=== PATIENT | male | born 1960 | race Caucasian/White ===

== ENCOUNTER 2019-07-29 12:52 | Outpatient (CLI) | payer MEDICARE, SELFPAY ==
[2019-07-29 13:28] VITALS: O2SAT 85; O2SAT 93; O2SAT 94
== END 2019-07-29 12:53 | disposition home or self-care (01) ==
LOC: RT 12:57
PROVIDERS: Family Provider Nurse Practitioner Family; PCP Nurse Practitioner Family; Visit Provider Internal Medicine Critical Care Medicine
DX: Z76.89 Persons encountering health services in other specified circumstances (principal)

== ENCOUNTER 2019-08-03 11:35 | Emergency (ER) | payer MEDICARE, SELFPAY ==
[2019-08-03 11:44] VITALS: BP 131/83; PULSE 98; RESP 16; TEMP 36.6; O2SAT 93; BMI 26.4
--- NOTE | 2019-08-03 12:01 | ED_ITS ---
HPI - SOB/Dyspnea General: Chief Complaint: Shortness of Breath/Dyspnea Stated Complaint: SOB Time Seen by Provider: 08/03/19 12:00 Review of Systems General: Reports: 10 or more systems reviewed and unremarkable except in HPI and below Resp: Reports: shortness of breath, non-productive cough and wheezing PFSH ED PFSH: Statuses (acute, chronic, etc) shown below reflect problem list status as previously entered and may not be historically accurate Medical History COPD (chronic obstructive pulmonary disease) GERD (gastroesophageal reflux disease) Tobacco abuse Surgical History H/O eye surgery H/O hernia repair History of facial surgery Family History Father Cancer Mother Dementia Diabetes Social History Smoking and tobacco status: current every day smoker cigarettes Years cigarettes smoked: 40 [ Other cigarette details: Pt on Chantix - Trying to quit ] Alcohol intake: current Alcohol intake frequency: holidays/special occasions only Lives independently: Yes Household members: significant other Marital status: Legally Current occupational status: disabled History of recent travel: No Current gender identity: Male Physical Exam Const: COMMON NORMALS: no apparent distress, average body habitus, oriented x3, no limitations, alert and well nourished Resp: EFFORT & INSPECTION: Yes able to speak in complete sentences, Yes symmetric chest movement, Yes respiratory distress, Yes decreased respiratory effort, Yes uses accessory muscles and Yes prolonged expiratory phase AUSCULTATION: diminished lung sounds Extremity: GENERAL: Yes normal exam except as noted and No edema Neuro: COMMON NORMALS: oriented x3 SENSORIUM/ORIENTATION: Yes alert Skin: COMMON NORMALS: no rashes or lesions noted, no wounds, skin turgor normal, no jaundice and no petechiae GENERAL SKIN EXAM: no rashes or lesions noted and turgor normal Course Vital Signs: Vital signs: Vital Signs Temperature 97.9 F 08/03/19 11:44 Pulse Rate 88 08/03/19 13:30 Respiratory Rate 23 H 08/03/19 13:30 Blood Pressure 132/109 08/03/19 13:30 Pulse Oximetry 94 08/03/19 13:30 MDM - SOB/Dyspnea Lab Data: Labs: Lab Results 08/03/19 08/03/19 08/03/19 Range/Units 12:20 12:25 12:25 WBC 7.7 (4.0-10.0) 10^3/ uL RBC 5.03 (4.1-5.3) 10^6/u L Hgb 16.6 (11.7-16.6) g/dL Hct 50.5 (42.0-52.0) % MCV 100.4 H (80-94) fL MCH 33.0 (28.0-34.0) pg MCHC 32.9 (30.0-36.0) g/dL RDW 12.8 (12.1-15.1) % Plt Count 297 (130-400) 10^3/c mm MPV 10.2 (7.4-10.4) fL Neut % (Auto) 72.7 % Lymph % (Auto) 14.0 % [place] % (Auto) 6.9 % Eos % (Auto) 5.3 % Baso % (Auto) 0.8 % Neut # (Auto) 5.6 (1.8-7.7) 10^3/u L Lymph # (Auto) 1.1 (0.8-4.8) 10^3/u L [place] # (Auto) 0.5 (0.2-0.9) 10^3/u L Eos # (Auto) 0.4 (0.0-0.8) 10^3/u L Baso # (Auto) 0.1 (0.0-0.1) 10^3/u L Nucleated RBC % (a uto) 0 % Nucleated RBCs # 0.0 /100WBC PT 12.90 (10.5-13.3) SECO NDS INR 0.94 (0.8-1.2) Sodium (136-145) mmol/L Potassium (3.5-5.1) mmol/L Chloride (98-107) mmol/L Carbon Dioxide (22-29) mmol/L Anion Gap (5-19) BUN (8-23) mg/dL Creatinine (0.7-1.2) mg/dL GFR Calculation (90-130) mL/min Glucose (65-115) mg/dL Calcium (8.5-10.5) mg/dL Total Bilirubin (0.15-1.2) mg/dL AST (0-40) U/L ALT (0-41) U/L Alkaline Phosphata se (40-130) IU/L NT-Pro-B Natriuret Pep (0-125) pg/mL Total Protein (6.6-8.7) g/dL Albumin (3.5-5.2) g/dL Globulin (1.3-4.6) g/dL Influenza Type A A g Negative (Negative) POC Influenza B Ag Negative (Negative) 08/03/19 Range/Units 12:25 WBC (4.0-10.0) 10^3/ uL RBC (4.1-5.3) 10^6/u L Hgb (11.7-16.6) g/dL Hct (42.0-52.0) % MCV (80-94) fL MCH (28.0-34.0) pg MCHC (30.0-36.0) g/dL RDW (12.1-15.1) % Plt Count (130-400) 10^3/c mm MPV (7.4-10.4) fL Neut % (Auto) % Lymph % (Auto) % [place] % (Auto) % Eos % (Auto) % Baso % (Auto) % Neut # (Auto) (1.8-7.7) 10^3/u L Lymph # (Auto) (0.8-4.8) 10^3/u L [place] # (Auto) (0.2-0.9) 10^3/u L Eos # (Auto) (0.0-0.8) 10^3/u L Baso # (Auto) (0.0-0.1) 10^3/u L Nucleated RBC % (a uto) % Nucleated RBCs # /100WBC PT (10.5-13.3) SECO NDS INR (0.8-1.2) Sodium 143 (136-145) mmol/L Potassium 4.2 (3.5-5.1) mmol/L Chloride 105 (98-107) mmol/L Carbon Dioxide 26 (22-29) mmol/L Anion Gap 16.2 (5-19) BUN 19 (8-23) mg/dL Creatinine 1.0 (0.7-1.2) mg/dL GFR Calculation 76.2 L (90-130) mL/min Glucose 111 (65-115) mg/dL Calcium 9.5 (8.5-10.5) mg/dL Total Bilirubin 0.2 (0.15-1.2) mg/dL AST 14 (0-40) U/L ALT 19 (0-41) U/L Alkaline Phosphata se 75 (40-130) IU/L NT-Pro-B Natriuret Pep 16 (0-125) pg/mL Total Protein 7.3 (6.6-8.7) g/dL Albumin 4.5 (3.5-5.2) g/dL Globulin 2.8 (1.3-4.6) g/dL Influenza Type A A g (Negative) POC Influenza B Ag (Negative) Discharge Plan Discharge Patient Disposition: Home, Self-Care Clinical Impression: Acute exacerbation of chronic obstructive airways disease Condition: Stable Prescriptions: New prednisone 10 mg tablets,dose pack See Rx Instructions .ROUTE .COMPLEX Qty: 21 RF: 0 No Action Chantix Starting Month Box 0.5 mg (11)- 1 mg (42) tablets,dose pack 1 each PO PER PKG DIR RF: 0 Spiriva with HandiHaler 18 mcg capsule, w/inhalation device 1 cap INHALATION ONCE 60 Days Qty: 60 RF: 3 Eliquis 5 mg tablet 2.5 mg PO BID 90 Days Qty: 90 RF: 2 fluticasone propionate 50 mcg/actuation spray,suspension 1 spray INTRANASAL BID 60 Days Qty: 36.4 RF: 1 sildenafil (pulm.hypertension) 20 mg tablet 20 mg PO .COMPLEX RF: 0 epinephrine 0.3 mg/0.3 mL auto-injector 0.3 mg IM ONCE RF: 0 albuterol sulfate [ProAir HFA] 90 mcg/actuation HFA aerosol inhaler 2 puff INHALATION Q6H PRNRF: 0 Symbicort 160-4.5 mcg/actuation HFA aerosol inhaler 2 puff INHALATION BID RF: 0 omeprazole 20 mg capsule,delayed release(DR/EC) 20 mg PO ONCE RF: 0 ipratropium-albuterol 0.5 mg-3 mg(2.5 mg base)/3 mL solution for nebulization 3 ml INHALATION QID PRNRF: 0 prednisone 5 mg tablet 2.5 mg PO DAILY Qty: 60 RF: 0 Discharge Orders: Discharge Order (Routine); Ordered 08/03/19 Ordered By: Antione Solitario Referrals: Betina Webb FNP [Primary Care Provider] - Ky Howard FNP [Family Provider] - Coding Level of Care Code ED Game Programmer for Chg Fwd Exam Problem Focused
[2019-08-03 12:08] VITALS: BP 126/82; PULSE 96; RESP 18; O2SAT 95
[2019-08-03 12:35] LABS: Basophils # 0.1 10^3/uL (0.0-0.1); Basophils % 0.8 %; Eosinophils # 0.4 10^3/uL (0.0-0.8); Eosinophils % 5.3 %; Hematocrit 50.5 % (42.0-52.0); Hemoglobin 16.6 g/dL (11.7-16.6); Lymphocytes # 1.1 10^3/uL (0.8-4.8); Mean Corpuscular HGB Conc 32.9 g/dL (30.0-36.0); Mean Corpuscular Volume 100.4 fL (80-94); Mean Platelet Volume 10.2 fL (7.4-10.4); Monocytes # 0.5 10^3/uL (0.2-0.9); Monocytes % 6.9 %; Neutrophils # 5.6 10^3/uL (1.8-7.7); Neutrophils % 72.7 %; Nucleated Red Blood Cells % 0 %; Platelet Count 297 10^3/cmm (130-400); Red Blood Count 5.03 10^6/uL (4.1-5.3); Red Cell Distribution Width 12.8 % (12.1-15.1); White Blood Count 7.7 10^3/uL (4.0-10.0)
[2019-08-03] MEDS: sodium chloride 0.9% 500 ML 999 ML IV (12:36)
[2019-08-03 12:49] LABS: INR 0.94 (0.8-1.2)
[2019-08-03 13:00] LABS: Alanine Aminotransferase 19 U/L (0-41); Albumin Level 4.5 g/dL (3.5-5.2); Alkaline Phosphatase 75 IU/L (40-130); Anion Gap 16.2 (5-19); Aspartate Amino Transferase 14 U/L (0-40); Blood Urea Nitrogen 19 mg/dL (8-23); Calcium 9.5 mg/dL (8.5-10.5); Carbon Dioxide 26 mmol/L (22-29); Chloride 105 mmol/L (98-107); Globulin 2.8 g/dL (1.3-4.6); Glomerular Filtration Rate 76.2 mL/min (90-130); Glucose 111 mg/dL (65-115); NT Pro B Type Natriuretic Pept 16 pg/mL (0-125); Potassium 4.2 mmol/L (3.5-5.1); Sodium 143 mmol/L (136-145); Total Bilirubin 0.2 mg/dL (0.15-1.2); Total Protein 7.3 g/dL (6.6-8.7)
[2019-08-03 13:06] LABS: Influenza A by IFA Negative (Negative); Influenza B by IFA Negative (Negative)
--- NOTE | 2019-08-03 13:22 | XR_ITS ---
WS: [id number] Portable AP upright chest, 08/03/2019 Clinical Data: dyspnea Comparison: Portable chest, 05/07/2019. Findings: No nodules, masses or effusions are seen. The heart is normal. The pulmonary vascularity is not increased. No pneumonia or pneumothorax is seen. The aortic arch and descending aorta are tortuo us. The diaphragms are flattened. Monitor leads are on the chest wall. XR/XR chest 1V portable [id number] Impression: Atherosclerosis and hyperinflation.
[2019-08-03 13:30] VITALS: BP 132/109; PULSE 88; RESP 23; O2SAT 94
[2019-08-03 14:15] VITALS: BP 117/88; PULSE 56; RESP 16; O2SAT 95
== END 2019-08-03 14:15 | disposition home or self-care (01) ==
PROVIDERS: Emergency Provider Family Medicine; Family Provider Nurse Practitioner Family; PCP Nurse Practitioner Family
DX: J44.1 Chronic obstructive pulmonary disease with (acute) exacerbation (principal); Z79.51 Long term (current) use of inhaled steroids; F17.210 Nicotine dependence, cigarettes, uncomplicated
CPT/HCPCS: 36415; 71045; 80053; 83880; 85025; 85610; 87040; 87070; 87205; 87804; 96374; 96375; 99282; 99284; J2930; J7040

== ENCOUNTER 2019-10-21 10:38 | Emergency (ER) | payer MEDICARE, MEDICAID, SELFPAY ==
[2019-10-21 10:46] VITALS: BP 140/84; PULSE 89; RESP 15; TEMP 36.8; O2SAT 97; BMI 26.4
--- NOTE | 2019-10-21 10:50 | ED_ITS ---
HPI - SOB/Dyspnea General: Chief Complaint: Shortness of Breath/Dyspnea Stated Complaint: SOB, CP X 3-4 DAYS Time Seen by Provider: 10/21/19 10:50 Source: patient Mode of arrival: ambulatory Limitations: no limitations Review of Systems General: Reports: 10 or more systems reviewed and unremarkable except in HPI and below PFSH ED PFSH: Social History Smoking and tobacco status: current every day smoker cigarettes Years cigarettes smoked: 40 [ Other cigarette details: Pt on Chantix - Trying to quit ] Alcohol intake: current Alcohol intake frequency: holidays/special occasions only Lives independently: Yes Household members: significant other Marital status: Legally Current occupational status: disabled History of recent travel: No Current gender identity: Male Physical Exam Const: COMMON NORMALS: no apparent distress and oriented x3 GENERAL POONAM EARANCE: cooperative HENMT: COMMON NORMALS: normocephalic, TM's normal bilaterally and external nose normal HEAD & SCALP: normal to inspection and normocephalic NOSE: external nose normal TYMPANIC MEMBRANE: TM's normal bilaterally MOUTH: oral and palatal mucosa normal THROAT: posterior oropharynx normal Eye: GENERAL EYE: normal appearance of both eyes Neck/C-Spine: COMMON NORMALS: full ROM Lymph: LYMPHATIC: no lymphadenopathy noted Chest: COMMONS NORMALS: inspection of chest normal Resp: COMMON NORMALS: normal respiratory effort EFFORT & INSPECTION: Yes able to speak in complete sentences Cardio: COMMON NORMALS: regular rate and regular rhythm RATE: regular rate RHYTHM: regular rhythm GI: COMMON NORMALS: non-tender : COMMON NORMALS: Yes no CVA tenderness BLADDER/KIDNEY EXAM: Yes no CVA tenderness Back/Pelvis: COMMON NORMALS: no CVA tenderness and thoracic and lumbar spine normal to inspection Extremity: COMMON NORMALS: normal to inspection Neuro: COMMON NORMALS: oriented x3 and moves all extremities Psych: COMMON NORMALS: mental status grossly normal and cooperative Skin: COMMON NORMALS: no rashes or lesions noted GENERAL SKIN EXAM: no rashes or lesions noted Course Vital Signs: Vital signs: Vital Signs Temperature 98.3 F 10/21/19 10:46 Pulse Rate 89 10/21/19 10:46 Respiratory Rate 15 10/21/19 10:46 Blood Pressure 140/84 10/21/19 10:46 Pulse Oximetry 97 10/21/19 10:46 Discharge Plan Discharge Prescriptions: No Action Chantix Starting Month Box 0.5 mg (11)- 1 mg (42) tablets,dose pack 1 each PO PER PKG DIR RF: 0 Spiriva with HandiHaler 18 mcg capsule, w/inhalation device 1 cap INHALATION ONCE 60 Days Qty: 60 RF: 3 Eliquis 5 mg tablet 2.5 mg PO BID 90 Days Qty: 90 RF: 2 fluticasone propionate 50 mcg/actuation spray,suspension 1 spray INTRANASAL BID 60 Days Qty: 36.4 RF: 1 sildenafil (pulm.hypertension) 20 mg tablet 20 mg PO .COMPLEX RF: 0 epinephrine 0.3 mg/0.3 mL auto-injector 0.3 mg IM ONCE RF: 0 albuterol sulfate [ProAir HFA] 90 mcg/actuation HFA aerosol inhaler 2 puff INHALATION Q6H PRNRF: 0 Symbicort 160-4.5 mcg/actuation HFA aerosol inhaler 2 puff INHALATION BID RF: 0 omeprazole 20 mg capsule,delayed release(DR/EC) 20 mg PO ONCE RF: 0 ipratropium-albuterol 0.5 mg-3 mg(2.5 mg base)/3 mL solution for nebulization 3 ml INHALATION QID PRNRF: 0 prednisone 5 mg tablet 5 mg PO DAILY Qty: 30 RF: 12 Coding Level of Care Code ED Online Merchant for Chg oHng
--- NOTE | 2019-10-21 10:54 | XR_ITS ---
WS: [id number] PORTABLE CHEST HISTORY: sob COMPARISON: 08/03/2019 Hyperexpanded lungs with chronic interstitial thickening. No pneumonia. Normal vasculature. No pleura l effusion or pneumothorax. Cardiac size: Normal. Mediastinum/Aorta: Mild atherosclerosis aorta. No osseous abnormality seen. XR/XR chest 1V portable [id number] IMPRESSION: Chronic emphysema with no acute cardiopulmonary disease.
--- NOTE | 2019-10-21 10:54 | CT_ITS ---
WS: [id number] CT CHEST ANGIOGRAPHY WITH REFORMATS HISTORY: sob TECHNIQUE: Contiguous axial images are obtained through the chest during arterial injection of intrav enous contrast. Images are reconstructed to evaluate the pulmonary arteries. MIP imaging also reviewe d. All CT scans at [facility] use at least one of these dose optimization techniques: aut omated exposure control; mA and/or kV adjustment per patient size (includes targeted exams where dose is matched to clinical indication); or iterative reconstruction. CONTRAST: Omnipaque 350; 95 mL IV. DLP: 647.41 mGy.cm COMPARISON: 09/08/2018 Excellent opacification of the pulmonary arteries. No central filling defects. The main pulmonary art eries are normal. Nonocclusive filling defects in the proximal RIGHT upper lobe pulmonary artery. The re are very tiny filling defects in the subsegmental branches of the lower lobes bilaterally. Segment al branch nonocclusive RIGHT middle lobe emboli. Normal size thoracic aorta. Pulmonary artery size is normal. Cardiac chamber size is normal. No RIGHT heart strain. There is mild thickening of the LEFT ventricle myocardium. No pericardial or pleural e ffusions. No pneumonia or pulmonary nodules. Numerous mediastinal and hilar lymph nodes. Similar appearance as compared to 09/08/2018. Bilateral hi lar lymph nodes measure up to 11 mm in diameter. Small hiatal hernia. Mild hepatic steatosis. No adrenal mass. Mild increase in thoracic kyphosis. No osteoblastic or osteolytic bone disease. Healed rib fracture i n the mid lateral RIGHT thorax. Notified Melly Rogel MD at 10/21/2019 12:[address]/CT angio chest PE protcl [id number] IMPRESSION: 1. Segmental and subsegmental nonocclusive pulmonary emboli. 2. No pneumonia. 3. Mild LEFT ventricular hypertrophy. 4. Mediastinal and hilar lymphadenopathy is indeterminate and stable since 08/21.
--- NOTE | 2019-10-21 10:54 | ECG_ITS ---
Measurements Intervals [place] Rate: 78 P: 63 GA: 156 QRS: 50 QRSD: 95 T: 44 QT: 353 QTc: 404 SINUS RHYTHM Compared to ECG 05/07/2019 14:32:29 Sinus tachycardia no longer present Electronically Signed On 10-22-2019 15:41:59 CDT by Moraima Underwood M.D. [email or web address]
[2019-10-21 11:07] VITALS: BP 138/99; PULSE 81; RESP 15; O2SAT 95
[2019-10-21 11:11] LABS: Basophils # 0.1 10^3/uL (0.0-0.1); Basophils % 0.8 %; Eosinophils # 0.6 10^3/uL (0.0-0.8); Eosinophils % 6.9 %; Hematocrit 52.8 % (42.0-52.0); Hemoglobin 17.4 g/dL (11.7-16.6); Lymphocytes # 1.5 10^3/uL (0.8-4.8); Lymphocytes % 17.6 %; Mean Corpuscular Hemoglobin 34.3 pg (28.0-34.0); Mean Corpuscular Volume 104.1 fL (80-94); Mean Platelet Volume 10.2 fL (7.4-10.4); Monocytes # 0.6 10^3/uL (0.2-0.9); Monocytes % 7.1 %; Neutrophils # 5.6 10^3/uL (1.8-7.7); Neutrophils % 67.2 %; Nucleated Red Blood Cells % 0 %; Platelet Count 275 10^3/cmm (130-400); Red Blood Count 5.07 10^6/uL (4.1-5.3); Red Cell Distribution Width 12.4 % (12.1-15.1); White Blood Count 8.4 10^3/uL (4.0-10.0)
--- NOTE | 2019-10-21 11:28 | ED_ITS ---
HPI - SOB/Dyspnea General: Chief Complaint: Shortness of Breath/Dyspnea Stated Complaint: SOB, CP X 3-4 DAYS Time Seen by Provider: 10/21/19 10:50 Source: patient Mode of arrival: ambulatory Limitations: no limitations History of Present Illness: HPI Narrative: 59-year-old male with a history of COPD and pulmonary was him states that he has had increasing shortness of breath over the last 3 to 4 days along with a left-sided sharp chest pain. He states his dyspnea usually gets worse this time a year with pollen. He denies any fever or coughs. He states that the pain is constant and sharp in nature and is been there for days. Associated symptoms: Reports chest pain; Deny abdominal pain, fever(s), nausea or vomiting Review of Systems Const: Denies: fever, chills, body aches or change in appetite Eyes: Denies: blurry vision or eye discomfort ENMT: Denies: throat pain or dental pain Card: Reports: chest pain Resp: Reports: shortness of breath and wheezing GI: Denies: abdominal pain, nausea, vomiting or diarrhea : Denies: painful urination Musc: Denies: neck pain or back pain Skin/Breast: Denies: rash Neuro: Denies: headache Psych: Denies: depression [place]/Lymph: Denies: easy bruising All/Imm: Denies: hives PFSH ED PFSH: Medical History COPD (chronic obstructive pulmonary disease) GERD (gastroesophageal reflux disease) Tobacco abuse Surgical History H/O eye surgery H/O hernia repair History of facial surgery Family History Father Cancer Mother Dementia Diabetes Social History Smoking and tobacco status: current every day smoker cigarettes Years cigarettes smoked: 40 [ Other cigarette details: Pt on Chantix - Trying to quit ] Alcohol intake: current Alcohol intake frequency: holidays/special occasions only Lives independently: Yes Household members: significant other Marital status: Legally Current occupational status: disabled History of recent travel: No Current gender identity: Male Physical Exam Const: COMMON NORMALS: no apparent distress, oriented x3 and healthy appearing HENMT: COMMON NORMALS: normocephalic and head/scalp atraumatic HEAD & SCAL P: normocephalic and atraumatic Eye: COMMON NORMALS: PERRL and EOMs intact bilaterally PUPIL: Yes PERRL Neck/C-Spine: COMMON NORMALS: full ROM and supple Chest: COMMONS NORMALS: inspection of chest normal and palpation of chest normal Resp: COMMON NORMALS: normal respiratory effort, no retractions, no use of accessory muscles and clear to auscultation bilaterally AUSCULTATION: clear to auscultation bilaterally and wheezes Cardio: COMMON NORMALS: regular rate, regular rhythm and no murmurs RATE: regular rate RHYTHM: regular rhythm GI: COMMON NORMALS: normal to inspection, nondistended, normoactive bowel sounds, soft to palpation, non-tender and no masses PALPATION: Yes soft Extremity: COMMON NORMALS: normal to inspection and full ROM Neuro: COMMON NORMALS: oriented x3, moves all extremities and no focal motor deficits Psych: COMMON NORMALS: mental status grossly normal, thought process normal and cooperative THOUGHT PROCESS: normal thought process Skin: COMMON NORMALS: no rashes or lesions noted and no wounds GENERAL SKIN EXAM: no rashes or lesions noted Course Vital Signs: Vital signs: Vital Signs Temperature 98.3 F 10/21/19 10:46 Pulse Rate 86 10/21/19 12:57 Respiratory Rate 20 H 10/21/19 12:57 Blood Pressure 142/95 10/21/19 12:57 Pulse Oximetry 96 10/21/19 12:57 MDM - SOB/Dyspnea MDM Narrative: Medical decision making narrative: Patient presents here shortness of breath chest pain that is likely a bronchitis. He feels much improved here after breathing treatment. CT did show very small pulmonary emboli likely causing no symptoms. 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 His troponin here is negative. EKG is normal as well. Will place on steroids and he is stable for discharge and return if worsening. Lab Data: Labs: Lab Results 10/21/19 10/21/19 10/21/19 Range/Units 11:02 11:02 11:02 WBC 8.4 (4.0-10.0) 10^3/ uL RBC 5.07 (4.1-5.3) 10^6/u L Hgb 17.4 H (11.7-16.6) g/dL Hct 52.8 H (42.0-52.0) % MCV 104.1 H (80-94) fL MCH 34.3 H (28.0-34.0) pg MCHC 33.0 (30.0-36.0) g/dL RDW 12.4 (12.1-15.1) % Plt Count 275 (130-400) 10^3/c mm MPV 10.2 (7.4-10.4) fL Neut % (Auto) 67.2 % Lymph % (Auto) 17.6 % [place] % (Auto) 7.1 % Eos % (Auto) 6.9 % Baso % (Auto) 0.8 % Neut # (Auto) 5.6 (1.8-7.7) 10^3/u L Lymph # (Auto) 1.5 (0.8-4.8) 10^3/u L [place] # (Auto) 0.6 (0.2-0.9) 10^3/u L Eos # (Auto) 0.6 (0.0-0.8) 10^3/u L Baso # (Auto) 0.1 (0.0-0.1) 10^3/u L Nucleated RBC % (a uto) 0 % Nucleated RBCs # 0.0 /100WBC Sodium 140 (136-145) mmol/L Potassium 4.2 (3.5-5.1) mmol/L Chloride 100 (98-107) mmol/L Carbon Dioxide 26 (22-29) mmol/L Anion Gap 18.2 (5-19) BUN 19 (8-23) mg/dL Creatinine 1.0 (0.7-1.2) mg/dL GFR Calculation 76.2 L (90-130) mL/min Glucose 95 (65-115) mg/dL Calculated Osmolal ity 286 (285-295) mOsm/k g Calcium 10.1 (8.5-10.5) mg/dL Total Bilirubin 0.5 (0.15-1.2) mg/dL AST 16 (0-40) U/L ALT 25 (0-41) U/L Alkaline Phosphata se 91 (40-130) IU/L Troponin T Baselin e 12 (0-15) ng/mL NT-Pro-B Natriuret Pep 27 (0-125) pg/mL Total Protein 8.1 (6.6-8.7) g/dL Albumin 4.9 (3.5-5.2) g/dL Globulin 3.2 (1.3-4.6) g/dL Imaging Data^: CXR: Radiologist's impression: [place] [id number] XRay Report Signed Patient: Jose Juan Fernandez Unit #: [id number] : 1960 Age/Sex: 59 / M ADM Date: 10/21/19 Loc: ER Room/Bed: Attending Dr: Ordering Provider/Ordering MD: Melly Rgoel MD Date of Service: 10/21/19 Procedure(s): XR chest 1V portable [id number] Accession Number(s): [id number] Report Number: [id number] WS: [id number] PORTABLE CHEST HISTORY: sob COMPARISON: 08/03/2019 Hyperexpanded lungs with chronic interstitial thickening. No pneumonia. Normal vasculature. No pleural effusion or pneumothorax. Cardiac size: Normal. Mediastinum/Aorta: Mild atherosclerosis aorta. No osseous abnormality seen. XR/XR chest 1V portable [id number] IMPRESSION: Chronic emphysema with no acute cardiopulmonary disease. CT Chest: Attestation: I personally reviewed and interpreted this imaging study as follows: Radiologist's impression: [address] [place] [address] CT Scan Report Signed Patient: Jose Juan Fernandez Unit #: [id number] : 1960 [id number] Age/Sex: 59 / M ADM Date: 10/21/19 Loc: ER Room/Bed: Attending Dr: Ordering Provider/Ordering MD: Melly Rogel MD Date of Service: 10/21/19 Procedure(s): CT angio chest PE protcl [id number] Accession Number(s): [id number] Report Number: [id number] WS: [id number] CT CHEST ANGIOGRAPHY WITH REFORMATS HISTORY: sob TECHNIQUE: Contiguous axial images are obtained through the chest during arterial injection of intravenous contrast. Images are reconstructed to evaluate the pulmonary arteries. MIP imaging also reviewed. All CT scans at [facility] use at least one of these dose optimization techniques: automated exposure control; mA and/or kV adjustment per patient size (includes targeted exams where dose is matched to clinical indication); or iterative reconstruction. CONTRAST: Omnipaque 350; 95 mL IV. DLP: 647.41 mGy.cm COMPARISON: 09/08/2018 Excellent opacification of the pulmonary arteries. No central filling defects. The main pulmonary arteries are normal. Nonocclusive filling defects in the proximal RIGHT upper lobe pulmonary artery. There are very tiny filling defects in the subsegmental branches of the lower lobes bilaterally. Segmental branch nonocclusive RIGHT middle lobe emboli. Normal size thoracic aorta. Pulmonary artery size is normal. Cardiac chamber size is normal. No RIGHT heart strain. There is mild thickening of the LEFT ventricle myocardium. No pericardial or pleural effusions. No pneumonia or pulmonary nodules. Numerous mediastinal and hilar lymph nodes. Similar appearance as compared to 09/08/2018. Bilateral hilar lymph nodes measure up to 11 mm in diameter. Small hiatal hernia. Mild hepatic steatosis. No adrenal mass. Mild increase in thoracic kyphosis. No osteoblastic or osteolytic bone disease. Healed rib fracture in the mid lateral RIGHT thorax. Notified Melly Rogel MD at 10/21/2019 12:[address]/CT angio chest PE protcl [id number] IMPRESSION: 1. Segmental and subsegmental nonocclusive pulmonary emboli. 2. No pneumonia. 3. Mild LEFT ventricular hypertrophy. 4. Mediastinal and hilar lymphadenopathy is indeterminate and stable since 09/08/2018. EKG Data^: EKG 1: Attestation: I personally reviewed and interpreted this EKG as follows: EKG Interpretation Date: 10/21/19 EKG interpretation time: 11:35 Interpretation: nsr hr [address] or t wave abnormalities qrs 95 qtc 386 Discharge Plan Discharge Patient Disposition: Home, Self-Care Clinical Impression: Acute exacerbation of chronic obstructive airways disease Pulmonary embolism Qualifiers: Pulmonary embolism type: multiple subsegmental (without acute cor pulmonale) Qualified Code(s): I26.94 - Multiple subsegmental pulmonary emboli without acute cor pulmonale Condition: Stable Prescriptions: New azithromycin 250 mg tablet See Rx Instructions .ROUTE .COMPLEX Qty: 6 RF: 0 prednisone 50 mg tablet 50 mg PO DAILY Qty: 5 RF: 0 No Action Chantix Starting Month Box 0.5 mg (11)- 1 mg (42) tablets,dose pack 1 each PO PER PKG DIR RF: 0 Eliquis 5 mg tablet 2.5 mg PO BID 90 Days Qty: 90 RF: 2 fluticasone propionate 50 mcg/actuation spray,suspension 1 spray INTRANASAL BID 60 Days Qty: 36.4 RF: 1 sildenafil (pulm.hypertension) 20 mg tablet 20 mg PO .COMPLEX RF: 0 epinephrine 0.3 mg/0.3 mL auto-injector 0.3 mg IM PRN RF: 0 albuterol sulfate [ProAir HFA] 90 mcg/actuation HFA aerosol inhaler 2 puff INHALATION Q6H PRN (Reason: Shortness Of Breath) RF: 0 Symbicort 160-4.5 mcg/actuation HFA aerosol inhaler 2 puff INHALATION BID RF: 0 omeprazole 20 mg capsule,delayed release(DR/EC) 20 mg PO DAILY RF: 0 ipratropium-albuterol 0.5 mg-3 mg(2.5 mg base)/3 mL solution for nebulization 3 ml INHALATION QID PRN (Reason: Shortness Of Breath) RF: 0 prednisone 5 mg tablet 5 mg PO DAILY Qty: 30 RF: 12 Centrum Men 8 mg iron- 200 mcg-600 mcg Tablet 1 tab PO DAILY RF: 0 Spiriva with HandiHaler 18 mcg capsule, w/inhalation device 1 cap INHALATION DAILY RF: 0 Discharge Orders: Discharge Order (Routine); Ordered 10/21/19 Ordered By: Melly Rogel Referrals: Betina Webb FNP [Primary Care Provider] - Wiliam Howard FNP [Family Provider] - Discharge Diet: Advance as tolerated Discharge Activity: Resume usual activity Patient Instructions: Acute Bronchitis (ED) Discharge Date/Time: 10/21/19 12:57 Coding Level of Care Code ED Manufacturer'S Representative for Chg Fwd Exam Comprehensive
[2019-10-21 11:29] LABS: Troponin(5th) Baseline 12 ng/mL (0-15)
[2019-10-21 11:38] LABS: Alanine Aminotransferase 25 U/L (0-41); Albumin Level 4.9 g/dL (3.5-5.2); Alkaline Phosphatase 91 IU/L (40-130); Anion Gap 18.2 (5-19); Aspartate Amino Transferase 16 U/L (0-40); Blood Urea Nitrogen 19 mg/dL (8-23); Calcium 10.1 mg/dL (8.5-10.5); Carbon Dioxide 26 mmol/L (22-29); Chloride 100 mmol/L (98-107); Globulin 3.2 g/dL (1.3-4.6); Glomerular Filtration Rate 76.2 mL/min (90-130); Glucose 95 mg/dL (65-115); NT Pro B Type Natriuretic Pept 27 pg/mL (0-125); Osmolality Calculated 286 mOsm/kg (285-295); Potassium 4.2 mmol/L (3.5-5.1); Sodium 140 mmol/L (136-145); Total Bilirubin 0.5 mg/dL (0.15-1.2); Total Protein 8.1 g/dL (6.6-8.7)
[2019-10-21] MEDS: iohexol 350 mg/mL 100 mL Btl IV (12:01)
[2019-10-21 12:18] VITALS: BP 137/82; PULSE 77; RESP 19; O2SAT 93
[2019-10-21] MEDS: ipratropium-albuterol 3 mL Neb INHALATION (12:31)
[2019-10-21 12:32] VITALS: PULSE 76; RESP 18; O2SAT 95
[2019-10-21 12:37] VITALS: PULSE 76
[2019-10-21 12:57] VITALS: BP 142/95; PULSE 86; RESP 20; O2SAT 96
[2019-10-21 13:20] LABS: INR 0.88 (0.8-1.2)
== END 2019-10-21 12:57 | disposition home or self-care (01) ==
PROVIDERS: Nurse Practitioner Family; Emergency Provider Emergency Medicine; Family Provider Nurse Practitioner Family; PCP Nurse Practitioner Family
DX: J44.1 Chronic obstructive pulmonary disease with (acute) exacerbation (principal); I26.94 Multiple subsegmental thrombotic pulmonary emboli without acute cor pulmonale; Z79.01 Long term (current) use of anticoagulants; K21.9 Gastro-esophageal reflux disease without esophagitis; F17.210 Nicotine dependence, cigarettes, uncomplicated; I70.0 Atherosclerosis of aorta
CPT/HCPCS: 12345; 71045; 71275; 80053; 83880; 84484; 85025; 85610; 93005; 94640; 96374; 99283; 99284; J2930; J7611; Q9967

== ENCOUNTER → 2020-04-28 09:55 | Outpatient (BNVA) | payer MEDICARE, MEDICAID, SELFPAY | PROVIDERS: Family Provider Nurse Practitioner Family; PCP Nurse Practitioner Family; Visit Provider Nurse Practitioner Family | DX: L03.119 Cellulitis of unspecified part of limb (principal); R03.0 Elevated blood-pressure reading, without diagnosis of hypertension; R53.83 Other fatigue; D58.2 Other hemoglobinopathies | CPT/HCPCS: 80053; 82607; 85007; 85027 ==

== ENCOUNTER 2020-12-18 06:21 | Emergency (ER) | payer MEDICARE, MEDICAID, SELFPAY ==
[2020-12-18 06:29] VITALS: BP 134/86; PULSE 95; RESP 15; TEMP 36.8; O2SAT 94; BMI 23.7
[2020-12-18 06:33] VITALS: BP 137/83; PULSE 93; RESP 16; O2SAT 93
--- NOTE | 2020-12-18 06:45 | XRR_ITS ---
PROCEDURE INFORMATION: Exam: XR Chest Exam date and time: 12/18/2020 6:45 AM Age: 60 years old Clinical indication: Cough and dyspnea; Patient HX: SOB, coughing, sore throat since yesterday; Additional info: Dyspnea/cough TECHNIQUE: Imaging protocol: XR of the chest. Views: 1 view. COMPARISON: CR XR chest 1V portable [id number] 10/21/2019 10:55 AM FINDINGS: Lungs: Hyperinflation of the lungs with changes of COPD. No focal consolidation. Pleural spaces: Unremarkable. No pleural effusion. No pneumothorax. Heart/Mediastinum: No cardiomegaly. Bones/joints: No acute fracture. XR/XR chest 1V portable [id number] IMPRESSION: No acute findings. COPD.
--- NOTE | 2020-12-18 06:45 | ECG_ITS ---
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 Measurements Intervals [place] Rate: 77 P: 66 WV: 150 QRS: 59 QRSD: 88 T: 64 QT: 351 QTc: 397 Interpretive Statements SINUS RHYTHM SEPTAL MYOCARDIAL INFARCTION [40+ ms Q WAVE IN V1/V2], OF INDETERMINATE AGE Compared to ECG 10/21/2019 10:57:38 Myocardial infarct finding now present Electronically Signed On 12-18-2020 21:16:21 CDT by Serafin Roach M.D. [id number]
--- NOTE | 2020-12-18 07:14 | W.ED.SOB ---
HPI - SOB/Dyspnea General: Chief Complaint: Shortness of Breath/Dyspnea Stated Complaint: DIFF. BREATHING Time Seen by Provider: 12/18/20 06:22 History of Present Illness: HPI Narrative: 60-year-old male presents emergency room with complaint of shortness of breath muscle fatigue myalgias and weakness. He has severe COPD but over the last few days he has noticed a marked change in his symptoms and worsening. He has not had any diarrhea or anosmia. Denies chest pain or productive cough. He is still responsive to albuterol but less so than he has been in the past. He had an albuterol treatment just prior to arrival here. MD elicited complaint: shortness of breath and cough Pertinent past history: COPD Onset (ago): day(s) Timing: constant Severity: moderate Exacerbating factors: exertion and coughing Relieving factors: rest and bronchodilators Known history of: COPD Associated symptoms: Reports chest congestion, cough, myalgias and nausea; Deny abdominal pain, chest pain, diaphoresis, dizziness, extremity pain, fever(s), hemoptysis, lightheadedness, orthopnea, palpitations, paresthesias, polydipsia, sense of impending doom, syncope or vomiting Treatment prior to arrival: oxygen and bronchodilator Review of Systems Const: Denies: fever(s) or diaphoresis ENMT: Denies: throat pain, ear or mastoid pain, nasal discharge or nasal congestion Card: Denies: chest pain, palpitations, lightheadedness, syncope or orthopnea Resp: Reports: chest congestion; Denies: hemoptysis GI: Reports: nausea; Denies: abdominal pain or vomiting : Denies: flank pain, dysuria, urinary frequency or urinary urgency Musc: Denies: extremity pain Skin/Breast: Denies: rash or pruritus Neuro: Denies: dizziness Endo: Denies: polydipsia PFSH ED PFSH: Medical History COPD (chronic obstructive pulmonary disease) GERD (gastroesophageal reflux disease) Tobacco abuse Surgical History H/O eye surgery H/O hernia repair History of facial surgery Family History Father Cancer Mother Dementia Diabetes Social History Smoking and tobacco status: current every day smoker cigarettes Years cigarettes smoked: 41 [ Other cigarette details: Hx of 1PPD x 42 Years ] Quit status (tobacco): considering quitting Second hand smoke exposure: Yes Smoking risk assessment/counseling performed?: Yes Alcohol intake: current Alcohol intake frequency: holidays/special occasions only Counseling given: No Counseling given: No Lives independently: Yes Household members: significant other Marital status: Legally Current occupational status: disabled History of recent travel: No Current gender identity: Male Physical Exam Const: COMMON NORMALS: no acute distress GENERAL APPEARANCE: cooperative and comfortable ORIENTATION/CONSCIOUSNESS: Yes awake, Yes oriented to person, Yes oriented to place and Yes oriented to time HENMT: COMMON NORMALS: normocephalic, atraumatic, hearing grossly normal bilaterally and external ears normal HEAD & SCALP: normocephalic and atraumatic EXTERNAL EAR: Yes external ears normal Neck/C-Spine: COMMON NORMALS: no JVD Resp: COMMON NORMALS: normal respiratory effort, No retractions and No use of accessory muscles AUSCULTATION: wheezes Cardio: COMMON NORMALS: no JVD, regular rate, regular rhythm and No murmurs present (Cardio) RATE: regular rate RHYTHM: regular rhythm GI: COMMON NORMALS: Soft to palpation and No hepatosplenomegaly present AUSCULTATION: Yes normoactive bowel sounds PALPATION: Yes Soft to palpation, No Tenderness to palpation present (GI), No Guarding due to palpation present (GI) and Yes No hepatosplenomegaly present Extremity: COMMON NORMALS: normal to inspection, capillary refill normal, no clubbing, cyanosis or edema, no calf tenderness and no pedal edema Neuro: SENSORIUM/ORIENTATION: Yes oriented to person, Yes oriented to place and Yes oriented to time Skin: COMMON NORMALS: no rashes or lesions noted GENERAL SKIN EXAM: no rashes or lesions noted Course Vital Signs: Vital signs: Vital Signs Temperature 98.3 F 12/18/20 06:29 Pulse Rate 93 12/18/20 06:33 Respiratory Rate 16 12/18/20 06:33 Blood Pressure 137/83 12/18/20 06:33 Pulse Oximetry 93 12/18/20 06:33 MDM - SOB/Dyspnea MDM Narrative: Medical decision making narrative: Rapid Covid negative PCR is pending. Recommend self quarantine until results are back. We will start him on steroids hold the prednisone has been taking Solu-Medrol today and then dexamethasone daily for 7 days then resume his prednisone. We will also add doxycycline. Recheck if not improving or worsens Lab Data: Labs: Lab Results 12/18/20 12/18/20 12/18/20 Range/Units 07:00 08:09 08:09 WBC 9.1 (4.0-10.0) 10^3/ uL RBC 4.92 (4.1-5.3) 10^6/u L Hgb 16.4 (11.7-16.6) g/dL Hct 49.7 (42.0-52.0) % MCV 101.0 H (80-94) fL MCH 33.3 (28.0-34.0) pg MCHC 33.0 (30.0-36.0) g/dL RDW 12.6 (12.1-15.1) % Plt Count 243 (130-400) 10^3/c mm MPV 10.1 (7.4-10.4) fL Neut % (Auto) 90.8 % Lymph % (Auto) 5.0 % [place] % (Auto) 3.0 % Eos % (Auto) 0.2 % Baso % (Auto) 0.4 % Neut # (Auto) 8.24 H (1.8-7.7) 10^3/u L Lymph # (Auto) 0.5 L (0.8-4.8) 10^3/u L [place] # (Auto) 0.3 (0.2-0.9) 10^3/u L Eos # (Auto) 0.0 (0.0-0.8) 10^3/u L Baso # (Auto) 0.0 (0.0-0.1) 10^3/u L Nucleated RBC % (a uto) 0 % Nucleated RBCs # 0.0 /100WBC Specimen Type Arterial Sample Site Brachial, right ABG pH 7.43 (7.35-7.45) ABG pCO2 37.0 (35-45) mmHg ABG pO2 66.3 L (80.0-100.0) mmH g ABG HCO3 24.6 (22-26) mmol/L ABG O2 Saturation 94.6 ABG Base Excess 0.6 (-2.0-2.0) mmol/ L Jose Test N/a A-a O2 Gradient 4.9 L (5-10) mmHg Hematocrit 52.0 (42-52) % Hgb O2 Saturation 92.7 L (95-100) % Carboxyhemoglobin 1.3 (0.4-20.1) %THgb Methemoglobin 0.8 (0.4-1.5) % Total Hemoglobin 17.0 (14-18) g/dL Sodium 139.0 136 (131-143) mmol/L Potassium 4.0 4.3 (3.5-5.0) mmol/L Glucose 110.0 111 (70-115) mg/dL Ionized Calcium 1.2 (1.1-1.4) mmol/L O2 Delivery Device Room air Occupational Health Nurse ID Gd Chloride 102 (98-107) mmol/L Carbon Dioxide 25 (22-29) mmol/L Anion Gap 13.3 (5-19) BUN 11 (8-23) mg/dL Creatinine 0.9 (0.7-1.2) mg/dL GFR Calculation 85.8 L (90-130) mL/min Calculated Osmolal ity 282 L (285-295) mOsm/k g Calcium 8.7 (8.5-10.5) mg/dL Total Bilirubin 0.6 (0.15-1.2) mg/dL AST 16 (0-40) U/L ALT 18 (0-41) U/L Alkaline Phosphata se 80 (40-130) IU/L Total Protein 6.8 (6.6-8.7) g/dL Albumin 4.2 (3.5-5.2) g/dL Globulin 2.6 (1.3-4.6) g/dL SARS-CoV-2 Ag (Rap id) (Negative) 12/18/20 Range/Units 08:09 WBC (4.0-10.0) 10^3/ uL RBC (4.1-5.3) 10^6/u L Hgb (11.7-16.6) g/dL Hct (42.0-52.0) % MCV (80-94) fL MCH (28.0-34.0) pg MCHC (30.0-36.0) g/dL RDW (12.1-15.1) % Plt Count (130-400) 10^3/c mm MPV (7.4-10.4) fL Neut % (Auto) % Lymph % (Auto) % [place] % (Auto) % Eos % (Auto) % Baso % (Auto) % Neut # (Auto) (1.8-7.7) 10^3/u L Lymph # (Auto) (0.8-4.8) 10^3/u L [place] # (Auto) (0.2-0.9) 10^3/u L Eos # (Auto) (0.0-0.8) 10^3/u L Baso # (Auto) (0.0-0.1) 10^3/u L Nucleated RBC % (a uto) % Nucleated RBCs # /100WBC Specimen Type Sample Site ABG pH (7.35-7.45) ABG pCO2 (35-45) mmHg ABG pO2 (80.0-100.0) mmH g ABG HCO3 (22-26) mmol/L ABG O2 Saturation ABG Base Excess (-2.0-2.0) mmol/ L Jose Test A-a O2 Gradient (5-10) mmHg Hematocrit (42-52) % Hgb O2 Saturation (95-100) % Carboxyhemoglobin (0.4-20.1) %THgb Methemoglobin (0.4-1.5) % Total Hemoglobin (14-18) g/dL Sodium (131-143) mmol/L Potassium (3.5-5.0) mmol/L Glucose (70-115) mg/dL Ionized Calcium (1.1-1.4) mmol/L O2 Delivery Device Occupational Health Nurse ID Chloride (98-107) mmol/L Carbon Dioxide (22-29) mmol/L Anion Gap (5-19) BUN (8-23) mg/dL Creatinine (0.7-1.2) mg/dL GFR Calculation (90-130) mL/min Calculated Osmolal ity (285-295) mOsm/k g Calcium (8.5-10.5) mg/dL Total Bilirubin (0.15-1.2) mg/dL AST (0-40) U/L ALT (0-41) U/L Alkaline Phosphata se (40-130) IU/L Total Protein (6.6-8.7) g/dL Albumin (3.5-5.2) g/dL Globulin (1.3-4.6) g/dL SARS-CoV-2 Ag (Rap id) Negative (Negative) Discharge Plan Discharge Patient Disposition: Home Clinical Impression: Acute exacerbation of chronic obstructive airways disease Condition: Stable Prescriptions: New doxycycline hyclate 100 mg capsule 100 mg PO BID 10 Days Qty: 20 RF: 0 dexamethasone 6 mg tablet 6 mg PO DAILY Qty: 7 RF: 0 Held prednisone 5 mg tablet See Rx Instructions .ROUTE .COMPLEX Qty: 30 RF: 11 Hold Instructions: Resume on 12/25/20. No Action epinephrine 0.3 mg/0.3 mL auto-injector 0.3 mg IM PRN Qty: 2 RF: 0 sildenafil 25 mg tablet 25 mg PO DAILY PRNRF: 0 ipratropium-albuterol 0.5 mg-3 mg(2.5 mg base)/3 mL solution for nebulization See Rx Instructions .ROUTE .COMPLEX Qty: 6 RF: 1 budesonide-formoterol [Symbicort] 160-4.5 mcg/actuation HFA aerosol inhaler See Rx Instructions .ROUTE .COMPLEX Qty: 10.2 RF: 10 albuterol sulfate 90 mcg/actuation HFA aerosol inhaler See Rx Instructions .ROUTE .COMPLEX Qty: 17 RF: 1 fluticasone propionate 50 mcg/actuation spray,suspension See Rx Instructions .ROUTE .COMPLEX Qty: 36 RF: 3 omeprazole 20 mg capsule,delayed release(DR/EC) See Rx Instructions .ROUTE .COMPLEX Qty: 30 RF: 0 Spiriva with HandiHaler 18 mcg capsule, w/inhalation device See Rx Instructions .ROUTE .COMPLEX Qty: 30 RF: 2 Eliquis 2.5 mg tablet See Rx Instructions .ROUTE .COMPLEX Qty: 180 RF: 0 Centrum Men 8 mg iron- 200 mcg-600 mcg Tablet 1 tab PO DAILY RF: 0 Discharge Orders: Discharge ED (Routine); Ordered 12/18/20 Ordered By: Huseyin Mcdaniels Referrals: Betnia Webb FNP [Primary Care Provider] - Discharge Diet: Usual diet Discharge Activity: Limit activity as instructed Patient Instructions: Opioid Safety Activity Restrictions/Additional Instructions: Maintain self quarantine till results are back if you have worsening symptoms return to the emergency room. 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
[2020-12-18 07:19] LABS: ABG PH Result 7.43 (7.35-7.45); Alveolar-Arterial Oxygen Gradi 4.9 mmHg (5-10); Base Excess ABG 0.6 mmol/L (-2.0-2.0); Blood Gas Operator Identificat GD; Blood Gas Sample Site Brachial, right; Blood Gas Sample Type Arterial; Carboxyhemoglobin 1.3 %THgb (0.4-20.1); HCO3 ABG 24.6 mmol/L (22-26); HGB O2 Sat 92.7 % (95-100); Ionized Calcium Level - ABG 1.2 mmol/L (1.1-1.4); Methemoglobin 0.8 % (0.4-1.5); Oxygen Device ROOM AIR; Oxygen Saturation ABG 94.6; PO2 ABG 66.3 mmHg (80.0-100.0)
[2020-12-18] MEDS: ondansetron 2 mg/ML SDV 2 mL 4 MG IVP (08:00)
[2020-12-18 08:23] LABS: Basophils % 0.4 %; Eosinophils % 0.2 %; Hematocrit 49.7 % (42.0-52.0); Hemoglobin 16.4 g/dL (11.7-16.6); Lymphocytes # 0.5 10^3/uL (0.8-4.8); Mean Corpuscular Hemoglobin 33.3 pg (28.0-34.0); Mean Platelet Volume 10.1 fL (7.4-10.4); Monocytes # 0.3 10^3/uL (0.2-0.9); Neutrophils # 8.24 10^3/uL (1.8-7.7); Neutrophils % 90.8 %; Nucleated Red Blood Cells % 0 %; Platelet Count 243 10^3/cmm (130-400); Red Blood Count 4.92 10^6/uL (4.1-5.3); Red Cell Distribution Width 12.6 % (12.1-15.1); White Blood Count 9.1 10^3/uL (4.0-10.0)
[2020-12-18 08:42] LABS: Alanine Aminotransferase 18 U/L (0-41); Albumin Level 4.2 g/dL (3.5-5.2); Alkaline Phosphatase 80 IU/L (40-130); Anion Gap 13.3 (5-19); Aspartate Amino Transferase 16 U/L (0-40); Blood Urea Nitrogen 11 mg/dL (8-23); Calcium 8.7 mg/dL (8.5-10.5); Carbon Dioxide 25 mmol/L (22-29); Chloride 102 mmol/L (98-107); Globulin 2.6 g/dL (1.3-4.6); Glomerular Filtration Rate 85.8 mL/min (90-130); Glucose 111 mg/dL (65-115); Osmolality Calculated 282 mOsm/kg (285-295); Potassium 4.3 mmol/L (3.5-5.1); Sodium 136 mmol/L (136-145); Total Bilirubin 0.6 mg/dL (0.15-1.2); Total Protein 6.8 g/dL (6.6-8.7)
[2020-12-18 09:11] LABS: SARS Covid-2 Antigen Negative (Negative)
[2020-12-18 09:46] VITALS: BP 136/85; PULSE 77; RESP 20; O2SAT 93
--- NOTE | 2020-12-18 09:53 | PC.NURSE ---
patient waiting for o2 eval
[2020-12-18 10:38] VITALS: O2SAT 94
[2020-12-18 11:04] VITALS: BP 126/81; PULSE 93; RESP 21; O2SAT 92
[2020-12-20 06:30] LABS: Coronavirus Test Green County Not Detected
--- NOTE | 2020-12-20 09:40 | PC.NURSE ---
notified pt of negative covid results
== END 2020-12-18 11:07 | disposition home or self-care (01) ==
PROVIDERS: Emergency Provider Family Medicine; PCP Nurse Practitioner Family
DX: J44.1 Chronic obstructive pulmonary disease with (acute) exacerbation (principal); Z79.01 Long term (current) use of anticoagulants; F17.210 Nicotine dependence, cigarettes, uncomplicated; Z20.822 Contact with and (suspected) exposure to COVID-19
CPT/HCPCS: 36600; 71045; 80051; 80053; 82330; 82805; 85025; 87426; 87635; 93005; 96374; 96375; 99284; J2405; J2930

== ENCOUNTER → 2021-09-10 11:23 | Outpatient (BNVA) | payer MEDICARE, MEDICAID, SELFPAY | PROVIDERS: PCP Nurse Practitioner Family; Visit Provider Internal Medicine Critical Care Medicine | DX: J44.9 Chronic obstructive pulmonary disease, unspecified (principal); F17.210 Nicotine dependence, cigarettes, uncomplicated; J30.9 Allergic rhinitis, unspecified; I26.94 Multiple subsegmental thrombotic pulmonary emboli without acute cor pulmonale; K21.9 Gastro-esophageal reflux disease without esophagitis | CPT/HCPCS: 99214 ==

== ENCOUNTER 2021-11-01 14:00 | Outpatient (CLI) | payer MEDICARE, MEDICAID, SELFPAY ==
--- NOTE | 2021-11-01 14:08 | CT_ITS ---
WS: [id number] LDCT LUNG CANCER SCREENING HISTORY: Lung Cancer Screening TECHNIQUE: Axial imaging performed from the apices to 1 cm below the costophrenic angles. Coronal and sagittal reformats are submitted with axial MIP series. All CT scans at [facility] use at least one of these dose optimization techniques: automated exposure control; mA and/or kV adjustment per patient size (includes targeted exams where dose is matched to clinical indication); or iterativ e reconstruction. DLP: 89.77 mGy.cm DIvol: Mean CTDIvol: 1.60 (mGy) COMPARISON: 10/21/2019 Diagnostic quality: Motion artifact at the lung bases. Lung Nodules: Slightly nondilated 4 mm nodule in the periphery RIGHT upper lobe, image 99 of series 5 . No additional nodules. No endobronchial lesions. Lungs: Chronic emphysema. Heart: Normal size. No pericardial effusion. Other findings: Minimal atherosclerosis aorta. Normal size pulmonary artery. No adenopathy. No adrena l mass. Very small hiatal hernia. CT/CT lung screening [id number] IMPRESSION: LUNG-RADS: 3-Probably Benign FOLLOW UP: 6 Month LDCT OTHER FINDINGS (S MODIFIER): None. Six-month low-dose CT follow-up, 4 mm nodule RIGHT upper lobe.
== END 2021-11-01 14:01 | disposition home or self-care (01) ==
LOC: RAD 14:03
PROVIDERS: PCP Nurse Practitioner Family; Visit Provider Internal Medicine Critical Care Medicine
DX: Z12.31 Encounter for screening mammogram for malignant neoplasm of breast (principal); F17.210 Nicotine dependence, cigarettes, uncomplicated; J43.9 Emphysema, unspecified
CPT/HCPCS: 71271

== ENCOUNTER 2022-03-31 09:46 | Emergency (ER) | payer MEDICARE, MEDICAID, SELFPAY ==
[2022-03-31] VITALS (7 sets, daily range): BP systolic 117–158; BP diastolic 73–108; PULSE 80–96; RESP 15–18; TEMP 36.4; O2SAT 91–96; BMI 26.9
--- NOTE | 2022-03-31 09:48 | ECG_ITS ---
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 Measurements Intervals [place] Rate: 86 P: -74 PA: 106 QRS: 40 QRSD: 89 T: 44 QT: 359 QTc: 430 Interpretive Statements Ectopic atrial rhythm NONSPECIFIC T-WAVE ABNORMALITY ABNORMAL RHYTHM ECG Compared to ECG 12/18/2020 07:51:05 Junctional rhythm now present T-wave abnormality now present Sinus rhythm no longer present Myocardial infarct finding no longer present Electronically Signed On 03-31-2022 18:20:50 CDT by Serafin Roach M.D. [id number]
--- NOTE | 2022-03-31 10:05 | XRR_ITS ---
PROCEDURE INFORMATION: Exam: XR Chest Exam date and time: 03/31/2022 10:25 AM Age: 61 years old Clinical indication: Cough TECHNIQUE: Imaging protocol: Radiologic exam of the chest. Views: 2 views. COMPARISON: CR XR chest 1V portable [id number] 12/18/2020 6:49 AM FINDINGS: Lungs: The lung parenchyma is clear. Pleural spaces: No pneumothorax. No pleural effusion. Heart/Mediastinum: The cardiomediastinal silhouette is within normal limits. Bones/joints: Multilevel degenerative changes in the spine. XR/XR chest 2V* [id number] IMPRESSION: No acute cardiopulmonary abnormality identified.
--- NOTE | 2022-03-31 10:20 | ED_ITS ---
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 Patient tells me that he was in contact with another person who was diagnosed with norovirus. Patient denies any diarrhea, loss of taste, chest pain palpitation or lightheadedness. Patient tells me that he has had appropriate p .o. intake last few days. Patient denies any melena or hematochezia or complaints at this time. No focal abdominal pain. Onset:5 days ago Duration:5 days Location:home Severity:moderate Associated symptoms: Reports dyspnea; Deny chest pain, nausea, rash, palpitations or vomiting Review of Systems Const: Reports: fatigue; Denies: fever(s) or chills Eyes: Denies: change in vision ENMT: Denies: mouth pain Card: Denies: chest pain or palpitations Resp: Reports: dyspnea and non-productive cough GI: Denies: abdominal pain, nausea, vomiting or diarrhea : Denies: dysuria Musc: Denies: extremity pain Skin/Breast: Denies: rash or new lesions Neuro: Denies: weakness in extremities Psych: Reports: other (Normal mood) Lenin/Lymph: Denies: easy bruising PFSH ED PFSH: Medical History COPD (chronic obstructive pulmonary disease) GERD (gastroesophageal reflux disease) Tobacco abuse Surgical History H/O eye surgery H/O hernia repair History of facial surgery Family History Father Cancer Mother Dementia Diabetes Social History (Updated 09/10/21 @ 11:42 by Marie Coyne LPN) Smoking and tobacco status: current every day smoker (5 per day) cigarettes Years cigarettes smoked: 41 [ Other cigarette details: Hx of 1PPD x 42 Years, started age 15] Quit status (tobacco): considering quitting Second hand smoke exposure: Yes Smoking risk assessment/counseling performed?: Yes Alcohol intake: current Alcohol intake frequency: holidays/special occasions only Counseling given: No Counseling given: No Lives independently: Yes Household members: significant other Marital status: Legally Current occupational status: disabled History of recent travel: No Current gender identity: Male Physical Exam Const: COMMON NORMALS: alert HENMT: COMMON NORMALS: atraumatic HEAD & SCALP: atraumatic MOUTH: moist mucous membranes not abnormal Eye: COMMON NORMALS: EOMs intact bilaterally and conjunctivae normal CONJUNCTIVA: Yes conjunctivae normal Neck/C-Spine: COMMON NORMALS: full ROM and supple Resp: COMMON NORMALS: normal respiratory effort OTHER: +coasrse breath sounds b/l Cardio: COMMON NORMALS: regular rate RATE: regular rate GI: COMMON NORMALS: Soft to palpation and non-tender PALPATION: Yes Soft to palpation Extremity: COMMON NORMALS: full ROM Neuro: SENSORIUM/ORIENTATION: Yes alert MOTOR EXAM: No Abnormal motor strength present and Other motor observations present (no focal motor deficits) Psych: COMMON NORMALS: speech normal SPEECH: Yes normal speech MOOD & AFFECT: Yes euthymic mood Course Vital Signs: Vital signs: Vital Signs Temperature 97.6 F 03/31/22 09:50 Pulse Rate 96 03/31/22 10:57 Respiratory Rate 16 03/31/22 10:48 Blood Pressure 158/108 03/31/22 09:50 Pulse Oximetry 94 03/31/22 10:48 Oxygen Delivery Me thod 03/31/22 10:48 Oxygen Flow Rate 7 03/31/22 10:48 MDM - General Adult Medical Decision Making Patient is a 61-year-old male with a history of COPD chronically on 3 L oxygen, 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 Patient has coarse sounds bilaterally. Patient is satting at 9394% on 3 to 4 L oxygen. Her chest appears to be clear. Suspect CT chest showed possible right middle lobe pneumonia. Patient received DuoNeb reports feeling symptomatically improved. The present time, patient stable does not require additional oxygen. We will discharge home with antibiotics. Patient is restricted to follow-up with primary care provider for further assessment. Rx doxycycline and augmentin for pneumonia Disposition: Discharge. Patient counseled regarding diagnostic impression, treatment plan. Patient given ED strict return precautions to return for contin uation, worsening, or development of new symptoms. Instructed to f/u w/ PCP regarding symptoms today. Patient verbalized understanding. Lab Data : 03/31/22 10:20 03/31/22 10:20 Radiology Impressions Chest X-Ray 03/31/22 10:05 IMPRESSION: No acute cardiopulmonary abnormality identified. Chest CTA 03/31/22 11:26 IMPRESSION: 1. No pulmonary embolus. 2. Peribronchial wall thickening; query viral infection/bronchitis, chronic bronchitis and/or asthma. 3. There is focal consolidation in the right middle lobe that could reflect atelectasis or pneumonia. 4. The distal esophageal wall is mildly thickened with slight adjacent edema; query esophagitis. 5. Extensive subsegmental atelectasis and/or scarring at the lung bases. 6. Mediastinal and bilateral hilar lymphadenopathy. 7. Solid pulmonary nodule measuring 3.8 mm. As per Fleischner Society 2017 guidelines for follow-up and management of pulmonary nodules: For patients at low risk (minimal or absent history of smoking and of other known risk factors), no routine follow-up. For patient at high risk (history of smoking or of other known risk factors), recommend optional CT at 12 months. 8. Borderline cardiomegaly with coronary artery disease. 9. Colonic diverticulosis. Laboratory Results WBC 6.6 10^3/uL (4.0-10.0) 03/31/22 10:20 RBC 5.07 10^6/uL (4.1-5.3) 03/31/22 10:20 Hgb 17.1 g/dL (11.7-16.6) H 03/31/22 10:20 Hct 51.1 % (42.0-52.0) 03/31/22 10:20 MCV 100.8 fl (80-94) H 03/31/22 10:20 MCH 33.7 pg (28.0-34.0) 03/31/22 10:20 MCHC 33.5 g/dL (30.0-36.0) 03/31/22 10:20 RDW 13.0 % (12.1-15.1) 03/31/22 10:20 Plt Count 266 10^3/cmm (130-400) 03/31/22 10:20 MPV 10.5 fL (7.4-10.4) H 03/31/22 10:20 Neut % (Auto) 73.5 % 03/31/22 10:20 Lymph % (Auto) 15.8 % 03/31/22 10:20 [place] % (Auto) 6.0 % 03/31/22 10:20 Eos % (Auto) 2.9 % 03/31/22 10:20 Baso % (Auto) 1.2 % 03/31/22 10:20 Neut # (Auto) 4.88 10^3/uL (1.8-7.7) 03/31/22 10:20 Lymph # (Auto) 1.1 10^3/uL (0.8-4.8) 03/31/22 10:20 [place] # (Auto) 0.4 10^3/uL (0.2-0.9) 03/31/22 10:20 Eos # (Auto) 0.2 10^3/uL (0.0-0.8) 03/31/22 10:20 Baso # (Auto) 0.1 10^3/uL (0.0-0.1) 03/31/22 10:20 Nucleated RBC % (auto) 0 % 03/31/22 10:20 Nucleated RBCs # 0.0 /100WBC 03/31/22 10:20 Sodium 140 mmol/L (136-145) 03/31/22 10:20 Potassium 4.2 mmol/L (3.5-5.1) 03/31/22 10:20 Chloride 103 mmol/L (98-107) 03/31/22 10:20 Carbon Dioxide 24 mmol/L (22-29) 03/31/22 10:20 Anion Gap 17.2 (5-19) 03/31/22 10:20 BUN 20 mg/dL (8-23) 03/31/22 10:20 Creatinine 1.1 mg/dL (0.7-1.2) 03/31/22 10:20 GFR Calculation 67.8 mL/min (90-130) L 03/31/22 10:20 Glucose 142 mg/dL (65-115) H 03/31/22 10:20 Calculated Osmolality 295 mOsm/kg (285-295) 03/31/22 10:20 Calcium 9.2 mg/dL (8.5-10.5) 03/31/22 10:20 Total Bilirubin 0.4 mg/dL (0.15-1.2) 03/31/22 10:20 AST 18 U/L (0-40) 03/31/22 10:20 ALT 19 U/L (0-41) 03/31/22 10:20 Alkaline Phosphatase 80 U/L (40-130) 03/31/22 10:20 C-Reactive Protein 3.0 mg/L (0.0-4.9) 03/31/22 10:20 Total Protein 7.2 g/dL (6.6-8.7) 03/31/22 10:20 Albumin 4.2 g/dL (3.5-5.2) 03/31/22 10:20 Globulin 3.0 g/dL (1.3-4.6) 03/31/22 10:20 Procalcitonin 0.05 ng/mL (0-0.5) 03/31/22 10:20 Coronavirus 229E (PCR) Not detected (NOT DETECT) 03/31/22 10:20 SARS-CoV-2 (PCR) Not detected (NOT DETECT) 03/31/22 10:20 Imaging Data Other Imaging: Radiologist's impression: [place] [address] CT Scan Report Signed Patient: Jose Juan Fernandez Unit #: [id number] : 1960 Age/Sex: 61 / M ADM Date: 03/31/22 Loc: ER Room/Bed: Attending Dr: Ordering Provider/Ordering MD: Meka Pfeiffer MD Date of Service: 03/31/22 Procedure(s): CT angio chest PE protcl [id number] Accession Number(s): [id number] Report Number: [id number] PROCEDURE INFORMATION: Exam: CTA Chest With Contrast Exam date and time: 03/31/2022 12:32 PM Age: 61 years old Clinical indication: Dyspnea and severe hypoxemia. TECHNIQUE: Imaging protocol: Computed tomographic angiography of the chest with contrast. 3D rendering (Not supervised by radiologist): MIP and/or 3D reconstructed images were created by the technologist. Radiation optimization: All CT scans at this facility use at least one of these dose optimization techniques: automated exposure control; mA and/or kV adjustment per patient size (includes targeted exams where dose is matched to clinical indication); or iterative reconstruction. Contrast material: OMNI 350; Contrast volume: 85 ml; Contrast route: INTRAVENOUS (IV);? COMPARISON: CT angio chest PE protcl [id number] 10/21/2019 11:58 AM RADIATION DOSE METRICS: Total DLP (mGy-cm): 456.01 FINDINGS: Pulmonary arteries: No pulmonary embolus. Aorta: No thoracic aortic aneurysm. Lungs: No pulmonary consolidation. Solid pulmonary nodule in the right upper lobe measuring 3.8 mm (image 154). There is focal consolidation in the right middle lobe that could reflect atelectasis or pneumonia. There is peribronchial wall thickening. There is extensive subsegmental atelectasis and/or scarring at the lung bases. Calcified granuloma at the right base. Pleural spaces: No pleural effusion. No pneumothorax. Heart: Borderline cardiomegaly. Coronary arterial calcifications are noted. No pericardial effusion. Mediastinal space: The distal esophageal wall is mildly thickened with slight adjacent edema; query esophagitis. Lymph nodes: A precarinal lymph node measures 1.0 x 2.3 cm. A right hilar lymph node measures 1.5 x 3.2 cm. A left hilar lymph node measures 1.2 x 2.1 cm. Diaphragm: Small hiatal hernia. Stomach and bowel: Colonic diverticulosis. Bones/joints: No acute fracture is identified. Soft tissues:? No significant soft tissue swelling. CT/CT angio chest PE protcl [id number] IMPRESSION: 1. No pulmonary embolus. 2. Peribronchial wall thickening; query viral infection/bronchitis, chronic bronchitis and/or asthma. 3. There is focal consolidation in the right middle lobe that could reflect atelectasis or pneumonia. 4. The distal esophageal wall is mildly thickened with slight adjacent edema; query esophagitis. 5. Extensive subsegmental atelectasis and/or scarring at the lung bases. 6. Mediastinal and bilateral hilar lymphadenopathy. 7. Solid pulmonary nodule measuring 3.8 mm. As per Fleischner Society 2017 guidelines for follow-up and management of pulmonary nodules: For patients at low risk (minimal or absent history of smoking and of other known risk factors), no routine follow-up. For patient at high risk (history of smoking or of other known risk factors), recommend optional CT at 12 months. 8. Borderline cardiomegaly with coronary artery disease. 9. Colonic diverticulosis. ? Dictated By: Reji Ramirez Signed By: Reji Ramirez Signed Date/Time: 03/31/22 1417 DD/ [address] [address] XRay Report Signed Patient: Jose Juan Fernandez Unit #: [id number] : 1960 Age/Sex: 61 / M ADM Date: 03/31/22 Loc: ER Room/Bed: Attending Dr: Ordering Provider/Ordering MD: Darryl Gomez DO Date of Service: 03/31/22 Procedure(s): XR chest 2V* [id number] Accession Number(s): [id number] Report Number: [id number] PROCEDURE INFORMATION: Exam: XR Chest Exam date and time: 03/31/2022 10:25 AM Age: 61 years old Clinical indication: Cough TECHNIQUE: Imaging protocol: Radiologic exam of the chest. Views: 2 views. COMPARISON: CR XR chest 1V portable [id number] 12/18/2020 6:49 AM FINDINGS: Lungs: The lung parenchyma is clear. Pleural spaces: No pneumothorax. No pleural effusion.? Heart/Mediastinum: The cardiomediastinal silhouette is within normal limits. ? Bones/joints: Multilevel degenerative changes in the spine. XR/XR chest 2V* [id number] IMPRESSION: No acute cardiopulmonary abnormality identified. ? Dictated By: Chino Garduno MD Signed By: Chino Gardnuo MD Signed Date/Time: 03/31/22 1046 DD/ 1025 Discharge Plan Discharge Patient Disposition: Home Clinical Impression: Pneumonia, Dyspnea, Cough Condition: Stable Prescriptions: New doxycycline hyclate 100 mg capsule 100 mg PO BID 10 Days Qty: 20 0RF amoxicillin-pot clavulanate 875-125 mg tablet 1 tab PO BID 10 Days Qty: 20 0RF No Action epinephrine 0.3 mg/0.3 mL auto-injector 0.3 mg IM PRN Qty: 2 0RF Rx Instructions: Please fill on 340B budesonide-formoterol [Symbicort] 160-4.5 mcg/actuation HFA aerosol inhaler 2 puff inhalation Q12H 30 Days Qty: 10.2 6RF prednisone 5 mg tablet See Rx Instructions .ROUTE .COMPLEX Qty: 30 5RF Hold Instructions: Resume on 12/25/20. Dose Instruction: TAKE 1 TABLET BY MOUTH EVERY DAY Rx Instructions: TAKE 1 TABLET BY MOUTH EVERY DAY ipratropium-albuterol 0.5 mg-3 mg(2.5 mg base)/3 mL solution for nebulization See Rx Instructions .ROUTE .COMPLEX Qty: 6 1RF Dose Instruction: USE 3ML FOUR TIMES DAILY Rx Instructions: USE 3ML FOUR TIMES DAILY Spiriva with HandiHaler 18 mcg capsule, w/inhalation device See Rx Instructions .ROUTE .COMPLEX Qty: 30 3RF Dose Instruction: INHALE THE CONTENTS OF 1 CAPSULE BY MOUTH DAILY ( ONE DOSE = 2 INHALATIONS) USING HANDIHALER Rx Instructions: INHALE THE CONTENTS OF 1 CAPSULE BY MOUTH DAILY ( ONE DOSE = 2 INHALATIONS) USING HANDIHALER sildenafil 25 mg tablet 25 mg PO DAILY PRN (Reason: sexual activity) Qty: 30 3RF Rx Instructions: administer 30 minutes to 4 hours before activity albuterol sulfate 90 mcg/actuation HFA aerosol inhaler See Rx Instructions .ROUTE .COMPLEX Qty: 17 5RF Dose Instruction: INHALE 1-2 PUFFS BY MOUTH FOUR TIMES DAILY (EVERY 6 HOURS) NEEDED Rx Instructions: INHALE 1-2 PUFFS BY MOUTH FOUR TIMES DAILY (EVERY 6 HOURS) NEEDED Eliquis 2.5 mg tablet 2.5 mg PO BID Qty: 60 5RF omeprazole 20 mg capsule,delayed release(DR/EC) 20 mg PO DAILY Qty: 90 3RF fluticasone propionate 50 mcg/actuation spray,suspension See Rx Instructions .ROUTE .COMPLEX Qty: 36 6RF Dose Instruction: USE 1 SPRAY IN BOTH NOSTRILS TWICE DAILY FOR NASAL CONGESTION Rx Instructions: USE 1 SPRAY IN BOTH NOSTRILS TWICE DAILY FOR NASAL CONGESTION Centrum Men 8 mg iron- 200 mcg-600 mcg Tablet 1 tab PO DAILY Discharge Orders: Discharge ED (Routine); Ordered 03/31/22 Ordered By: Meka Pfeiffer Referrals: Betina Webb, SCIENTIST PROPAGATOR [Primary Care Provider] - Discharge Diet: Advance as tolerated Discharge Activity: Increase activity as tolerated Patient Instructions: Bacterial Pneumonia (ED), Pain Management Activity Restrictions/Additional Instructions: Come back to the emergency room if your symptoms worsen, have any shortness of breath, fever/chills, dehydration, inability tolerate food or drinks, any difficulty breathing, or any new or concerning complaints. Please take your antibiotics as instructed. Watch out for signs of skin changes/redness, mouth redeness or swelling, nausea/vomiting, diarrhea, blood in the urine or any new or concering complaints. 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
[2022-03-31 10:36] LABS: Basophils # 0.1 10^3/uL (0.0-0.1); Basophils % 1.2 %; Eosinophils # 0.2 10^3/uL (0.0-0.8); Eosinophils % 2.9 %; Hematocrit 51.1 % (42.0-52.0); Hemoglobin 17.1 g/dL (11.7-16.6); Lymphocytes # 1.1 10^3/uL (0.8-4.8); Lymphocytes % 15.8 %; Mean Corpuscular HGB Conc 33.5 g/dL (30.0-36.0); Mean Corpuscular Hemoglobin 33.7 pg (28.0-34.0); Mean Corpuscular Volume 100.8 fl (80-94); Mean Platelet Volume 10.5 fL (7.4-10.4); Monocytes # 0.4 10^3/uL (0.2-0.9); Neutrophils # 4.88 10^3/uL (1.8-7.7); Neutrophils % 73.5 %; Nucleated Red Blood Cells % 0 %; Platelet Count 266 10^3/cmm (130-400); Red Blood Count 5.07 10^6/uL (4.1-5.3); White Blood Count 6.6 10^3/uL (4.0-10.0)
[2022-03-31] MEDS: ipratropium-albuterol 3 mL Neb INHALATION ×3 (10:47)
[2022-03-31 11:18] LABS: Alanine Aminotransferase 19 U/L (0-41); Albumin Level 4.2 g/dL (3.5-5.2); Alkaline Phosphatase 80 U/L (40-130); Anion Gap 17.2 (5-19); Aspartate Amino Transferase 18 U/L (0-40); Blood Urea Nitrogen 20 mg/dL (8-23); Calcium 9.2 mg/dL (8.5-10.5); Carbon Dioxide 24 mmol/L (22-29); Chloride 103 mmol/L (98-107); Glomerular Filtration Rate 67.8 mL/min (90-130); Glucose 142 mg/dL (65-115); Osmolality Calculated 295 mOsm/kg (285-295); Potassium 4.2 mmol/L (3.5-5.1); Sodium 140 mmol/L (136-145); Total Bilirubin 0.4 mg/dL (0.15-1.2); Total Protein 7.2 g/dL (6.6-8.7)
[2022-03-31 11:22] LABS: Procalcitonin 0.05 ng/mL (0-0.5)
--- NOTE | 2022-03-31 11:26 | CTR_ITS ---
PROCEDURE INFORMATION: Exam: CTA Chest With Contrast Exam date and time: 03/31/2022 12:32 PM Age: 61 years old Clinical indication: Dyspnea and severe hypoxemia. TECHNIQUE: Imaging protocol: Computed tomographic angiography of the chest with contrast. 3D rendering (Not supervised by radiologist): MIP and/or 3D reconstructed images were created by the technologist. Radiation optimization: All CT scans at this facility use at least one of these dose optimization techniques: automated exposure control; mA and/or kV adjustment per patient size (includes targeted exams where dose is matched to clinical indication); or iterative reconstruction. Contrast material: OMNI 350; Contrast volume: 85 ml; Contrast route: INTRAVENOUS (IV); COMPARISON: CT angio chest PE protcl [id number] 10/21/2019 11:58 AM RADIATION DOSE METRICS: Total DLP (mGy-cm): 456.01 FINDINGS: Pulmonary arteries: No pulmonary embolus. Aorta: No thoracic aortic aneurysm. Lungs: No pulmonary consolidation. Solid pulmonary nodule in the right upper lobe measuring 3.8 mm (image 154). There is focal consolidation in the right middle lobe that could reflect atelectasis or pneumonia. There is peribronchial wall thickening. There is extensive subsegmental atelectasis and/or scarring at the lung bases. Calcified granuloma at the right base. Pleural spaces: No pleural effusion. No pneumothorax. Heart: Borderline cardiomegaly. Coronary arterial calcifications are noted. No pericardial effusion. Mediastinal space: The distal esophageal wall is mildly thickened with slight adjacent edema; query esophagitis. Lymph nodes: A precarinal lymph node measures 1.0 x 2.3 cm. A right hilar lymph node measures 1.5 x 3.2 cm. A left hilar lymph node measures 1.2 x 2.1 cm. Diaphragm: Small hiatal hernia. Stomach and bowel: Colonic diverticulosis. Bones/joints: No acute fracture is identified. Soft tissues: No significant soft tissue swelling. CT/CT angio chest PE protcl [id number] IMPRESSION: 1. No pulmonary embolus. 2. Peribronchial wall thickening; query viral infection/bronchitis, chronic bronchitis and/or asthma. 3. There is focal consolidation in the right middle lobe that could reflect atelectasis or pneumonia. 4. The distal esophageal wall is mildly thickened with slight adjacent edema; query esophagitis. 5. Extensive subsegmental atelectasis and/or scarring at the lung bases. 6. Mediastinal and bilateral hilar lymphadenopathy. 7. Solid pulmonary nodule measuring 3.8 mm. As per Fleischner Society 2017 guidelines for follow-up and management of pulmonary nodules: For patients at low risk (minimal or absent history of smoking and of other known risk factors), no routine follow-up. For patient at high risk (history of smoking or of other known risk factors), recommend optional CT at 12 months. 8. Borderline cardiomegaly with coronary artery disease. 9. Colonic diverticulosis.
[2022-03-31] MEDS: iohexol 350 mg/mL 100 mL Btl IV (12:35)
[2022-03-31 12:43] LABS: Adenovirus Not Detected (NOT DETECT); Chlamydia Pneumoniae Not Detected (NOT DETECT); Coronavirus 229E,HKU1,NL63,OC4 Not Detected (NOT DETECT); Human Metapneumovirus Not Detected (NOT DETECT); Human Rhinovirus/Enterovirus Not Detected (NOT DETECT); Influenza A Not Detected (NOT DETECT); Influenza A H1 Not Detected (NOT DETECT); Influenza A H1-2009 Not Detected (NOT DETECT); Influenza A H3 Not Detected (NOT DETECT); Influenza B Not Detected (NOT DETECT); Mycoplasma Pneumoniae Not Detected (NOT DETECT); Parainfluenza Virus Type 1 Not Detected (NOT DETECT); Parainfluenza Virus Type 2 Not Detected (NOT DETECT); Parainfluenza Virus Type 3 Not Detected (NOT DETECT); Parainfluenza Virus Type 4 Not Detected (NOT DETECT); Respiratory Syncytial Virus A Not Detected (NOT DETECT); Respiratory Syncytial Virus B Not Detected (NOT DETECT); SARS-COV-2 Not Detected (NOT DETECT)
== END 2022-03-31 14:30 | disposition home or self-care (01) ==
PROVIDERS: Emergency Medicine; Emergency Provider Emergency Medicine; PCP Nurse Practitioner Family
DX: J44.0 Chronic obstructive pulmonary disease with (acute) lower respiratory infection (principal); J18.9 Pneumonia, unspecified organism; Z79.620 Long term (current) use of immunosuppressive biologic; Z20.822 Contact with and (suspected) exposure to COVID-19; F17.210 Nicotine dependence, cigarettes, uncomplicated
CPT/HCPCS: 71046; 71275; 80053; 84145; 85025; 86140; 87635; 93005; 94640; 99285; Q9967

== ENCOUNTER → 2022-04-03 08:51 | Outpatient (BNVA) | payer MEDICARE, MEDICAID, SELFPAY | PROVIDERS: PCP Nurse Practitioner Family; Visit Provider Internal Medicine Critical Care Medicine | DX: J44.9 Chronic obstructive pulmonary disease, unspecified (principal); J96.11 Chronic respiratory failure with hypoxia; J30.9 Allergic rhinitis, unspecified; K40.90 Unilateral inguinal hernia, without obstruction or gangrene, not specified as recurrent; F17.210 Nicotine dependence, cigarettes, uncomplicated; D49.0 Neoplasm of unspecified behavior of digestive system; I83.92 Asymptomatic varicose veins of left lower extremity; Z79.52 Long term (current) use of systemic steroids; Z99.81 Dependence on supplemental oxygen; Z86.711 Personal history of pulmonary embolism; Z86.718 Personal history of other venous thrombosis and embolism; Z79.01 Long term (current) use of anticoagulants | CPT/HCPCS: 99214 ==

== ENCOUNTER → 2022-04-09 08:44 | Outpatient (BNVA) | payer MEDICARE, MEDICAID, SELFPAY | PROVIDERS: PCP Nurse Practitioner Family; Visit Provider Otolaryngology | DX: K11.8 Other diseases of salivary glands (principal); J96.11 Chronic respiratory failure with hypoxia; J44.9 Chronic obstructive pulmonary disease, unspecified; F17.210 Nicotine dependence, cigarettes, uncomplicated | CPT/HCPCS: 99204 ==

== ENCOUNTER → 2022-04-24 10:41 | Outpatient (BNVA) | payer MEDICARE, MEDICAID, SELFPAY | PROVIDERS: PCP Nurse Practitioner Family; Visit Provider Surgery | DX: K40.90 Unilateral inguinal hernia, without obstruction or gangrene, not specified as recurrent (principal) | CPT/HCPCS: 99203 ==

== ENCOUNTER 2022-04-30 11:16 | Outpatient (CLI) | payer MEDICARE, MEDICAID, SELFPAY ==
--- NOTE | 2022-04-30 13:00 | US_ITS ---
WS: [id number] ULTRASOUND PAROTID FNA CLINICAL INFORMATION: parotid gland mass TECHNIQUE: Ultrasound-guided FNA RIGHT parotid mass FINDINGS: Prior CT neck and MRI neck from 2019 was reviewed. The procedure including risks, benefits, and complications were discussed with the patient who agreed to proceed. Timeout was performed. Usin g sterile technique patient was prepped and draped in usual sterile fashion. After 1% lidocaine, usin g ultrasound guidance, a 25-gauge needle was advanced into the RIGHT parotid mass. 5 passes were made with active aspiration. Pathology was present for slide preparation. No immediate complications. Patient remained in the ultrasound suite 10 minutes postprocedure with intermittent ultrasound to ens ure no hematoma. US/US guide FNA [id number] IMPRESSION: Uncomplicated ultrasound-guided parotid mass FNA
[2022-05-01 12:50] LABS: Lymphoma Profile (BBPL) See Report
== END 2022-04-30 11:17 | disposition home or self-care (01) ==
PROVIDERS: PCP Nurse Practitioner Family; Visit Provider Otolaryngology
DX: I89.8 Other specified noninfective disorders of lymphatic vessels and lymph nodes (principal)
CPT/HCPCS: 10005; 88108; 88184; 88185

== ENCOUNTER → 2022-05-14 09:09 | Outpatient (BNVA) | payer MEDICARE, MEDICAID, SELFPAY | PROVIDERS: PCP Nurse Practitioner Family; Visit Provider Otolaryngology | DX: K11.8 Other diseases of salivary glands (principal); F17.210 Nicotine dependence, cigarettes, uncomplicated | CPT/HCPCS: 99213 ==

== ENCOUNTER → 2022-09-05 13:23 | Outpatient (BNVA) | payer MEDICARE, MEDICAID, SELFPAY | PROVIDERS: PCP Nurse Practitioner Family; Visit Provider Internal Medicine Pulmonary Disease | DX: J44.9 Chronic obstructive pulmonary disease, unspecified (principal); F17.210 Nicotine dependence, cigarettes, uncomplicated; J96.11 Chronic respiratory failure with hypoxia; J30.9 Allergic rhinitis, unspecified; K40.90 Unilateral inguinal hernia, without obstruction or gangrene, not specified as recurrent; Z99.81 Dependence on supplemental oxygen; Z86.711 Personal history of pulmonary embolism; Z79.01 Long term (current) use of anticoagulants; I83.92 Asymptomatic varicose veins of left lower extremity | CPT/HCPCS: 99214 ==

== ENCOUNTER → 2023-03-06 14:40 | Outpatient (BNVA) | payer MEDICARE, MEDICAID, SELFPAY | PROVIDERS: PCP Nurse Practitioner Family; Visit Provider Internal Medicine Pulmonary Disease | DX: J44.9 Chronic obstructive pulmonary disease, unspecified (principal); J96.11 Chronic respiratory failure with hypoxia; J30.9 Allergic rhinitis, unspecified; I26.94 Multiple subsegmental thrombotic pulmonary emboli without acute cor pulmonale; K40.90 Unilateral inguinal hernia, without obstruction or gangrene, not specified as recurrent; F17.210 Nicotine dependence, cigarettes, uncomplicated; D11.0 Benign neoplasm of parotid gland | CPT/HCPCS: 99214 ==

== ENCOUNTER 2023-05-05 07:17 | Outpatient (CLI) | payer MEDICARE, MEDICAID, SELFPAY ==
--- NOTE | 2023-05-05 07:30 | CT_ITS ---
WS: [id number] LDCT LUNG CANCER SCREENING HISTORY: Cancer Screen TECHNIQUE: Axial imaging performed from the apices to 1 cm below the costophrenic angles. Coronal and sagittal reformats are submitted with axial MIP series. All CT scans at [facility] use at least one of these dose optimization techniques: automated exposure control; mA and/or kV adjustment per patient size (includes targeted exams where dose is matched to clinical indication); or iterativ e reconstruction. DLP: 74.11 mGy.cm DIvol: Mean CTDIvol: 1.30 (mGy) COMPARISON: 03/31/2022 Diagnostic quality: Satisfactory Lungs: Well-expanded lungs. Reidentified is the 5 mm noncalcified nodule periphery RIGHT upper lobe, previously described on 11/01/2021 with no change. Chronic changes of interstitial thickening. No new mass or pulmonary nodule. Chronic atelectasis/scar at the lingula and in the RIGHT middle lobe are st able. Configuration suggests atelectasis. No endobronchial lesions. Heart: Normal size heart with no pericardial effusion.. Other findings: Mild atherosclerosis aorta. Normal sized pulmonary artery. Small mediastinal and carlos r lymph nodes. Calcified subcarinal lymph node. Small hiatal hernia. No adrenal mass. Mild increase i n thoracic kyphosis. IMPRESSION: CT/CT lung screening [id number] LUNG-RADS: 2-Benign Appearance or Behavior FOLLOW UP: 12 Month: Continue annual screening with LDCT OTHER FINDINGS (S MODIFIER): None.
== END 2023-05-05 07:18 | disposition home or self-care (01) ==
LOC: RAD 07:18
PROVIDERS: PCP Nurse Practitioner Family; Visit Provider Internal Medicine Pulmonary Disease
DX: Z12.2 Encounter for screening for malignant neoplasm of respiratory organs (principal); F17.210 Nicotine dependence, cigarettes, uncomplicated
CPT/HCPCS: 71271

== ENCOUNTER → 2023-09-04 08:27 | Outpatient (BNVA) | payer MEDICARE, MEDICAID, SELFPAY | PROVIDERS: PCP Nurse Practitioner Family; Visit Provider Internal Medicine Pulmonary Disease | DX: J44.9 Chronic obstructive pulmonary disease, unspecified (principal); J96.11 Chronic respiratory failure with hypoxia; F17.200 Nicotine dependence, unspecified, uncomplicated; J30.9 Allergic rhinitis, unspecified; I26.94 Multiple subsegmental thrombotic pulmonary emboli without acute cor pulmonale; K40.90 Unilateral inguinal hernia, without obstruction or gangrene, not specified as recurrent; B37.0 Candidal stomatitis | CPT/HCPCS: 99214 ==

== ENCOUNTER 2024-08-09 07:45 | Emergency (ER) | payer MEDICARE, MEDICAID, SELFPAY ==
[2024-08-09 07:50] VITALS: BP 119/77; PULSE 80; RESP 18; TEMP 36.7; O2SAT 94
--- NOTE | 2024-08-09 07:51 | XRR_ITS ---
PROCEDURE INFORMATION: Exam: XR Chest Exam date and time: 08/09/2024 8:01 AM Age: 64 years old Clinical indication: Cough and dyspnea; Additional info: Dyspnea/cough TECHNIQUE: Imaging protocol: Radiologic exam of the chest. Views: 1 view. COMPARISON: CT lung screening [id number] 05/05/2023 7:49 AM , chest x-ray 03/31/2022 FINDINGS: Lungs: There is linear scarring at the lung bases. No consolidation is identified. Pleural spaces: Unremarkable. No pleural effusion. No pneumothorax. Heart/Mediastinum: The heart is enlarged. There is calcified plaque involving the aorta. Bones/joints: Unremarkable. XR/XR chest 1V portable [id number] IMPRESSION: 1. Cardiomegaly. 2. Scarring at the lung bases unchanged when compared to prior chest x-ray.
--- NOTE | 2024-08-09 07:51 | ECG_ITS ---
[employer] Test Date: 2024-08-09 Pat Name: Jose Juan Fernandez Department: Room: Gender: Male Diploma Medical Assistant: : 1960 Requested By: Huseyin Lucero Order Number: [id number] Karis MD: Serafin Roach M.D. Measurements Intervals [place] Rate: 77 P: 39 AR: 148 QRS: 26 QRSD: 95 T: 27 QT: 366 QTc: 414 Interpretive Statements SINUS RHYTHM NONSPECIFIC T-WAVE ABNORMALITY Compared to ECG 03/31/2022 10:21:14 Ectopic atrial rhythm no longer present T-wave abnormality still present Electronically Signed On 08-09-2024 11:22:43 TABLET TESTER by Serafin Roach M.D. [email or web address]
--- NOTE | 2024-08-09 08:00 | W.ED.URI ---
HPI - URI/Sore Throat General: Chief Complaint: Upper Respiratory Infection Stated Complaint: sob, cough Time Seen by Provider: 08/09/24 07:50 History of Present Illness: 64-year-old male presents to the emergency room with complaint of shortness of breath nonproductive cough subjective fever. Other members of his household have been ill recently. Associated symptoms: Deny abdominal pain, chills, chest pain or fever(s) Related Data Home Medications ?Medication ?Instructions ?Recorded ?Confirmed apixaban 2.5 mg tablet (Eliquis) 2.5 mg PO BID 08/09/24 08/09/24 latanoprost 0.005 % eye drops 1 drp ophthalmic (eye) QPM 08/09/24 08/09/24 prednisolone acetate 1 % eye 1 drp ophthalmic (eye) Q3H 08/09/24 08/09/24 drops,suspension Previous Rx's ?Medication ?Instructions ?Recorded albuterol sulfate 90 mcg/actuation See Rx Instructions .Route 11/21/23 aerosol inhaler .COMPLEX shortness of breath or wheezing #17 grams fluticasone propionate 50 See Rx Instructions .Route 12/17/23 mcg/actuation nasal .COMPLEX #36 grams spray,suspension epinephrine 0.3 mg/0.3 mL 0.3 mg (0.3 mL) IM PRN #2 ea 01/05/24 injection, auto-injector tiotropium bromide 18 mcg capsule See Rx Instructions .Route 02/24/24 with inhalation device (Spiriva .COMPLEX #30 caps with HandiHaler) budesonide-formoterol HFA 160 2 puff inhalation Q12H 30 days 06/07/24 mcg-4.5 mcg/actuation aerosol #10.2 grams inhaler (Symbicort) ipratropium 0.5 mg-albuterol 3 mg See Rx Instructions .Route 06/14/24 (2.5 mg base)/3 mL nebulization .COMPLEX #6 mL soln prednisone 5 mg tablet 5 mg PO DAILY #30 tabs 07/27/24 methylprednisolone 4 mg tablets in See Rx Instructions PO .COMPLEX 08/09/24 a dose pack (Medrol (Brock)) #21 ea oseltamivir 75 mg capsule (Tamiflu) 75 mg PO BID 5 days #10 caps 08/09/24 Allergies Allergy/AdvReac Type Severity Reaction Status Date / Time egg Allergy Severe ALGY-Anaphy Verified 07/27/24 14:26 laxis bee venom protein (honey bee) Allergy anaphylaxis Verified 07/27/24 14:26 tetanus toxoid, adsorbed Allergy edema Verified 07/27/24 14:26 Review of Systems Const: Denies: fever(s) or chills Card: Denies: chest pain Resp: Denies: dyspnea GI: Denies: abdominal pain : Denies: dysuria, urinary frequency or urinary urgency Musc: Denies: neck pain or back pain Skin/Breast: Denies: rash PFSH ED PFSH: Medical History COPD (chronic obstructive pulmonary disease) Tobacco abuse GERD (gastroesophageal reflux disease) Surgical History H/O hernia repair History of facial surgery H/O eye surgery Family History Father Cancer Mother Dementia Diabetes Social History Smoking and tobacco/nicotine status: current every day tobacco/nicotine user cigarettes Years cigarettes smoked: 41 [ Other cigarette details: Hx of 1PPD x 42 Years, started age 15] Quit status (tobacco/nicotine): considering quitting Second hand smoke exposure: Yes Alcohol intake: current Alcohol intake frequency: holidays/special occasions only Substance/Drug Use: never Lives independently: Yes Household members: significant other Marital status: Legally Current occupational status: disabled Do you think of yourself as: Straight/Heterosexual Current gender identity: Male Physical Exam Const: COMMON NORMALS: no acute distress GENERAL APPEARANCE: cooperative ORIENTATION/CONSCIOUSNESS: Yes awake, Yes oriented to person, Yes oriented to place and Yes oriented to time HENMT: COMMON NORMALS: normocephalic, atraumatic and hearing grossly normal bilaterally HEAD & SCALP: normocephalic and atraumatic Resp: COMMON NORMALS: normal respiratory effort, No retractions, No use of accessory muscles and clear to auscultation bilaterally AUSCULTATION: clear to auscultation bilaterally Cardio: COMMON NORMALS: regular rate, regular rhythm and No murmurs present (Cardio) RATE: regular rate RHYTHM: regular rhythm GI: COMMON NORMALS: Soft to palpation and No hepatosplenomegaly present AUSCULTATION: Yes normoactive bowel sounds PALPATION: Yes Soft to palpation, No Tenderness to palpation present (GI), No Guarding due to palpation present (GI) and Yes No hepatosplenomegaly present Extremity: COMMON NORMALS: normal to inspection, capillary refill normal, no clubbing, cyanosis or edema, no calf tenderness and no pedal edema Neuro: SENSORIUM/ORIENTATION: Yes oriented to person, Yes oriented to place and Yes oriented to time Skin: COMMON NORMALS: no rashes or lesions noted GENERAL SKIN EXAM: no rashes or lesions noted Course Vital Signs: Vital signs: Vital Signs Temperature 98.1 F 08/09/24 07:50 Pulse Rate 84 08/09/24 09:35 Respiratory Rate 18 08/09/24 08:36 Blood Pressure 148/81 08/09/24 09:35 Pulse Oximetry 92 08/09/24 09:35 Oxygen Delivery Me thod Nasal Cannula 08/09/24 08:36 Oxygen Flow Rate 3 08/09/24 08:36 MDM - URI/Sore Throat Medical Decision Making Labs and imaging reviewed. Patient positive for influenza A. Symptoms began within the last 24 hours. Because of his COPD we will put him on Tamiflu also start him on a steroid taper encourage aggressive use of albuterol follow-up with primary care return if not improved improving or if you were to worsen. Medical Records I reviewed the patient's medical records. Lab Data I reviewed the patient's lab results. 08/09/24 08:28 08/09/24 08:28 Radiology Impressions Chest X-Ray 08/09/24 07:51 IMPRESSION: 1. Cardiomegaly. 2. Scarring at the lung bases unchanged when compared to prior chest x-ray. Laboratory Results WBC 8.24 10^3/uL (3.29-11.43) 08/09/24 08:28 RBC 4.75 10^6/uL (3.85-5.65) 08/09/24 08:28 Hgb 15.90 g/dL (11.27-16.99) 08/09/24 08:28 Hct 47.4 % (37-53) 08/09/24 08:28 MCV 99.8 fl (82-101) 08/09/24 08:28 MCH 33.5 pg (27-33) H 08/09/24 08: MCHC 33.5 g/dL (30-55) 08/09/24 08: RDW 13.0 % (12.1-15.1) 08/09/24 08: Plt Count 243 10^3/cmm (157-399) 08/09/24 08: MPV 10.3 fL (7.4-10.4) 08/09/24 08: Neut % (Auto) 81.4 % 08/09/24 08: Lymph % (Auto) 7.0 % 08/09/24: Woodson % (Auto) 10.2 % 08/09/24: Eos % (Auto) 0.2 % 08/09/24: Baso % (Auto) 0.6 % 08/09/24: Neut # (Auto) 6.70 10^3/uL (1.8-7.7) 08/09/24 08: Lymph # (Auto) 0.6 10^3/uL (0.8-4.8) L 08/09/24 08: Woodson # (Auto) 0.8 10^3/uL (0.2-0.9) 08/09/24 08: Eos # (Auto) 0.0 10^3/uL (0.0-0.8) 08/09/24 08: Baso # (Auto) 0.1 10^3/uL (0.0-0.1) 08/09/24 08: Nucleated RBC % (auto) 0 % 08/09/24: Nucleated RBCs # 0.0 /100WBC 08/09/24 08: Sodium 136 mmol/L (136-145) 08/09/24 08: Potassium 3.8 mmol/L (3.5-5.1) 08/09/24 08: Chloride 99 mmol/L (98-107) 08/09/24 08: Carbon Dioxide 22 mmol/L (22-29) 08/09/24 08: Anion Gap 18.8 (5-19) 08/09/24 08: BUN 11 mg/dL (8-23) 08/09/24 08:28 Creatinine 0.9 mg/dL (0.7-1.2) 08/09/24 08:28 GFR Calculation 84.7 mL/min (90-130) L 08/09/24 08:28 Glucose 110 mg/dL (65-115) 08/09/24 08:28 Calculated Osmolality 282 mOsm/kg (285-295) L 08/09/24 08:28 Calcium 9.1 mg/dL (8.5-10.5) 08/09/24 08:28 Total Bilirubin 0.5 mg/dL (0.15-1.2) 08/09/24 08:28 AST 15 U/L (0-40) 08/09/24 08:28 ALT 15 U/L (0-41) 08/09/24 08:28 Alkaline Phosphatase 88 U/L (40-130) 08/09/24 08:28 Total Protein 7.0 g/dL (6.6-8.7) 08/09/24 08:28 Albumin 4.0 g/dL (3.5-5.2) 08/09/24 08:28 Globulin 3.0 g/dL (1.3-4.6) 08/09/24 08:28 Coronavirus (PCR) Negative (Negative) 08/09/24 07:55 Influenza A (PCR) Positive (Negative) 08/09/24 07:55 Influenza Type B (PCR) Negative (Negative) 08/09/24 07:55 RSV (PCR) Negative (Negative) 08/09/24 07:55 All radiology interpretation(s) finalized by discharge Discharge Plan Discharge Patient Disposition: Home Clinical Impression: Influenza Condition: Stable Prescriptions: New methylprednisolone [Medrol (Brock)] 4 mg tablets,dose pack See Rx Instructions .ROUTE .COMPLEX Qty: 21 0RF Rx Instructions: orally per package directions oseltamivir [Tamiflu] 75 mg capsule 75 mg PO BID 5 Days Qty: 10 0RF No Action prednisone 5 mg tablet 5 mg PO DAILY Qty: 30 2RF epinephrine 0.3 mg/0.3 mL auto-injector 0.3 mg IM PRN Qty: 2 0RF Rx Instructions: Please fill on 340B albuterol sulfate 90 mcg/actuation HFA aerosol inhaler See Rx Instructions .ROUTE .COMPLEX Qty: 17 5RF Dose Instruction: INHALE 1-2 PUFFS BY MOUTH FOUR TIMES DAILY (EVERY 6 HOURS) NEEDED Rx Instructions: INHALE 1-2 PUFFS BY MOUTH FOUR TIMES DAILY (EVERY 6 HOURS) NEEDED fluticasone propionate 50 mcg/actuation spray,suspension See Rx Instructions .ROUTE .COMPLEX Qty: 36 6RF Dose Instruction: USE 1 SPRAY IN BOTH NOSTRILS TWICE DAILY FOR NASAL CONGESTION Rx Instructions: USE 1 SPRAY IN BOTH NOSTRILS TWICE DAILY FOR NASAL CONGESTION tiotropium bromide [Spiriva with HandiHaler] 18 mcg capsule, w/inhalation device See Rx Instructions .ROUTE .COMPLEX Qty: 30 6RF Dose Instruction: inhale contents of ONE capsule BY MOUTH EVERY DAY using handihaler Rx Instructions: inhale contents of ONE capsule BY MOUTH EVERY DAY using handihaler budesonide-formoterol [Symbicort] 160-4.5 mcg/actuation HFA aerosol inhaler 2 puff inhalation Q12H 30 Days Qty: 10.2 5RF ipratropium-albuterol 0.5 mg-3 mg(2.5 mg base)/3 mL solution for nebulization See Rx Instructions .ROUTE .COMPLEX Qty: 6 1RF Dose Instruction: USE 3ML FOUR TIMES DAILY Rx Instructions: USE 3ML FOUR TIMES DAILY Eliquis 2.5 mg tablet 2.5 mg PO BID Rx Instructions: TAKE 1 TABLET BY MOUTH TWICE DAILY latanoprost 0.005 % drops 1 drp ophthalmic (eye) QPM prednisolone acetate 1 % drops,suspension 1 drp ophthalmic (eye) Q3H Discharge Orders: Discharge ED (Routine); Ordered 08/09/24 Ordered By: Huseyin Mcdaniels Referrals: Betina Webb FNP [Primary Care Provider] - Discharge Diet: Usual diet Discharge Activity: Increase activity as tolerated Patient Instructions: Influenza (ED), Opioid Safety, Pain Management Activity Restrictions/Additional Instructions: Thank you for choosing [facility] for your healthcare needs today. It is very important that you follow up as instructed or that you return to the Emergency Department should you have concerns or if your condition changes or worsens in any way. Print Language: Sudanese Coding Level of Care Code ED [employer] Supervisor for Al Pitts
[2024-08-09] MEDS: methylPREDNISolone sod succ 125 mg/2 mL INJ IVP (08:26)
[2024-08-09 08:36] VITALS: PULSE 73; RESP 18; O2SAT 94
[2024-08-09] MEDS: ipratropium-albuterol 3 mL Neb INHALATION (08:36)
[2024-08-09 08:37] VITALS: PULSE 75
[2024-08-09 08:52] LABS: Basophils # 0.1 10^3/uL (0.0-0.1); Basophils % 0.6 %; Eosinophils % 0.2 %; Hematocrit 47.4 % (37-53); Lymphocytes # 0.6 10^3/uL (0.8-4.8); Mean Corpuscular HGB Conc 33.5 g/dL (30-55); Mean Corpuscular Hemoglobin 33.5 pg (27-33); Mean Corpuscular Volume 99.8 fl (82-101); Mean Platelet Volume 10.3 fL (7.4-10.4); Monocytes # 0.8 10^3/uL (0.2-0.9); Monocytes % 10.2 %; Neutrophils % 81.4 %; Nucleated Red Blood Cells % 0 %; Platelet Count 243 10^3/cmm (157-399); Red Blood Count 4.75 10^6/uL (3.85-5.65); White Blood Count 8.24 10^3/uL (3.29-11.43)
[2024-08-09 08:53] LABS: Influenza A POSITIVE (Negative); Influenza B NEGATIVE (Negative); Respiratory Syncytial Virus Ce NEGATIVE (Negative); SARS-CoV-2 PCR NEGATIVE (Negative)
[2024-08-09 09:03] LABS: Alanine Aminotransferase 15 U/L (0-41); Alkaline Phosphatase 88 U/L (40-130); Anion Gap 18.8 (5-19); Aspartate Amino Transferase 15 U/L (0-40); Blood Urea Nitrogen 11 mg/dL (8-23); Calcium 9.1 mg/dL (8.5-10.5); Carbon Dioxide 22 mmol/L (22-29); Chloride 99 mmol/L (98-107); Creatinine Clr Calc Pharmacy 101.7296; Glomerular Filtration Rate 84.7 mL/min (90-130); Glucose 110 mg/dL (65-115); Osmolality Calculated 282 mOsm/kg (285-295); Potassium 3.8 mmol/L (3.5-5.1); Sodium 136 mmol/L (136-145); Total Bilirubin 0.5 mg/dL (0.15-1.2)
[2024-08-09 09:35] VITALS: BP 148/81; PULSE 84; O2SAT 92
== END 2024-08-09 09:36 | disposition home or self-care (01) ==
PROVIDERS: Emergency Provider Family Medicine; PCP Nurse Practitioner Family
DX: J10.1 Influenza due to other identified influenza virus with other respiratory manifestations (principal); Z11.52 Encounter for screening for COVID-19; Z79.01 Long term (current) use of anticoagulants; F17.210 Nicotine dependence, cigarettes, uncomplicated; J44.9 Chronic obstructive pulmonary disease, unspecified
CPT/HCPCS: 36415; 71045; 80053; 85025; 87637; 93005; 94640; 96374; 99285; J2919

== ENCOUNTER 2024-10-08 10:45 | Outpatient (CLI) | payer MEDICARE, SELFPAY ==
--- NOTE | 2024-10-08 10:50 | CTR_ITS ---
PROCEDURE INFORMATION: Exam: CT Neck With Contrast Exam date and time: 10/08/2024 11:14 AM Age: 64 years old Clinical indication: Mass, lump, or swelling in neck; Right jaw mass x 5 years, recently becoming larger; Additional info: Localized swelling, mass, lump, neck TECHNIQUE: Imaging protocol: Computed tomography of the neck with contrast. Radiation optimization: All CT scans at this facility use at least one of these dose optimization techniques: automated exposure control; mA and/or kV adjustment per patient size (includes targeted exams where dose is matched to clinical indication); or iterative reconstruction. Contrast material: OMNI 350; Contrast volume: 90 ml; Contrast route: INTRAVENOUS (IV); COMPARISON: MRI Neck/Face/Orbit w/wo [id number] 12/23/2018 12:08 PM RADIATION DOSE METRICS: Total DLP (mGy-cm): 407.85 FINDINGS: Orbital cavities: Left-sided orbital reconstruction. Paranasal sinuses: Mucous retention cyst right maxillary antrum. Salivary glands: Homogeneously dense mass in the superficial and deep lobes of the right parotid gland, measuring approximately 3.7 x 3.0 x 4.0 cm. This was present on MRI from 12/23/2018 is now larger. Pharynx: Unremarkable. No significant tonsillar enlargement. Larynx: Unremarkable. Epiglottis is normal. Thyroid: Normal. No enlarged or calcified nodules. Trachea: Visualized trachea is unremarkable. Lungs: Unremarkable as visualized. Lymph nodes: Unremarkable. No lymphadenopathy. Bones/joints: Unremarkable. No acute fracture. Soft tissues: Unremarkable. No significant soft tissue swelling. CT/CT neck w con* [id number] IMPRESSION: Homogeneously dense mass in the superficial and deep lobes of the right parotid gland, measuring approximately 3.7 x 3.0 x 4.0 cm. This was present on MRI from 12/23/2018 but is now larger. Slow growth rate strongly favors benign etiology but this can not be confirmed on imaging alone.
[2024-10-08] MEDS: iohexol 350 mg/mL 500 mL Btl (per mL) IV (10:59)
[2024-10-08 11:10] LABS: Blood Urea Nitrogen 17 mg/dL (8-23); Glomerular Filtration Rate 67.2 mL/min (90-130)
== END 2024-10-08 10:46 | disposition home or self-care (01) ==
PROVIDERS: PCP Nurse Practitioner Family; Visit Provider Specialist
DX: R22.1 Localized swelling, mass and lump, neck (principal); M27.40 Unspecified cyst of jaw; Z98.890 Other specified postprocedural states
CPT/HCPCS: 70491; 82565; 84520

== ENCOUNTER → 2025-03-22 13:27 | Outpatient (BNVA) | payer MEDICARE, SELFPAY | PROVIDERS: PCP Nurse Practitioner Family; Visit Provider Nurse Practitioner Family | DX: I10 Essential (primary) hypertension (principal); R53.83 Other fatigue | CPT/HCPCS: 80053; 80061; 85025 ==